=== PATIENT | male | born 1950 | race Caucasian/White ===

== ENCOUNTER → 2016-06-16 | Outpatient (CLI) | payer OTHER ==
[~2016-06-16] MED LIST: ASPCH81 PO; ESCI1TAB10 PO; HYG/25 PO; LEVO88TA3 PO; OMEP20CA9 PO; POTA10CA28 PO; POTA20TA13 PO; PRAM1.5T8 PO; PRAV20TA PO; [UNRECOGNIZED DRUG - CODE] PO
== END | disposition home or self-care (01) ==
LOC: C.LABPVFM 11:12
PROVIDERS: ATTEND Nurse Practitioner
DX: E87.6 Hypokalemia (principal)

== ENCOUNTER → 2016-12-02 | Outpatient (CLI) | payer OTHER ==
[2016-12-02 13:27] LABS: CALCIUM 8.7 mg/dl (8.5-10.1)
[2016-12-02 13:35] LABS: ALKALINE PHOSPHATASE 81 U/L (45-117); ALT/SGPT 39 U/L (12-78); BLOOD UREA NITROGEN 15 mg/dl (7-18); BUN/CREATININE RATIO 11.5 (10-20); CARBON DIOXIDE 26 mmol/L (21-32); CHLORIDE 104 mmol/L (98-107); CHOLESTEROL 164 mg/dl (0-200); GLUCOSE 95 mg/dl (70-99); POTASSIUM 3.3 mmol/L (3.5-5.1); SODIUM 140 mmol/L (136-145); TRIGLYCERIDES 191 mg/dl (0-150); VERY LOW DENSITY LIPOPROT CALC 38 mg/dl
[2016-12-02 13:45] LABS: ALB/GLOB RATIO 1.2 (0.9-2); AST/SGOT 28 U/L (15-37); CHOLESTEROL/HDL RATIO 4.6; HDL CHOLESTEROL 36 mg/dl; LDL CHOLESTEROL CALCULATED 90 mg/dl
== END | disposition home or self-care (01) ==
LOC: C.LABPVFM 07:21
PROVIDERS: ATTEND Nurse Practitioner
DX: E78.5 Hyperlipidemia, unspecified (principal); I10 Essential (primary) hypertension; E03.9 Hypothyroidism, unspecified

== ENCOUNTER → 2016-12-26 | Outpatient (CLI) | payer OTHER ==
[~2016-12-26] MED LIST changes: -POTA20TA13 PO; -PRAM1.5T8 PO
== END ==
LOC: C.LABPVFM 08:03
PROVIDERS: ATTEND Nurse Practitioner
DX: E87.6 Hypokalemia (principal)

== ENCOUNTER → 2017-01-11 | Day surgery (SDC) | payer OTHER ==
[2016-12-25 12:43] VITALS: BMI 26.0
[~2017-01-11] VITALS: Ht 172.7 cm; Wt 79.5 kg
[~2017-01-11] MED LIST changes: +LIDOCAINE HCL 2% 2 ML VIAL (20MG/ML) ONE; +PROPOFOL IV EMULSION 10 MG/ML 20 ML VIAL IV ONE; +SODIUM CHLORIDE 0.9% 500ML 500 ML IV ONE
[2017-01-11 10:31] VITALS: Ht 172.7 cm; Wt 79.5 kg
--- NOTE | 2017-01-11 11:00 | Endo History and Physical ---
History & Physical Date of Service: Jan 11, 2017. Chief Complaint: Family history of colon cancer Referring Physician: Mumtaz GARZA History of Present Illness 66 yo CM who presents for colonoscopy secondary to family history of colon cancer (Mother). Past Surgical History Hx Cardiac Surgery: No Hx Internal Defibrillator: No Hx Pacemaker: No Hx Abdominal Surgery: Yes (HARLEY) Hx of Implantable Prosthesis: No Hx Post-Op Nausea and Vomiting: No Hx Cancer Surgery: No Hx Thoracic Surgery: No Hx Orthopedic: Yes (RT/LEFT EBLOW FX REPAIR) Hx Urinary Tract Surgery: No Family History Colon CA Social History Smoking Status: Current Some Day Smoker Hx Substance Use: No Hx Alcohol Use: Yes (RARELY) Allergies Coded Allergies: No Known Allergies (Unverified , 01/11/17) Current Medications Reported Home Medications Medications Dose Route/Sig Max Daily Dose Days Date Category Pravachol (Pravastatin Sodium) 20 Mg Tab 20 Mg PO HS 12/25/16 Reported Pramipexole Dihydrochlori (Pramipexole Dihydrochloride) 2.25 Mg Tab 1 Tab PO DAILY AT 1100 12/25/16 Reported Micro-K Ext Rel (Potassium Chloride) 10 Meq Capcr 10 Meq PO QAM 12/25/16 Reported Prilosec (Omeprazole) 20 Mg Cap 20 Mg PO QAM 12/25/16 Reported Lexapro (Escitalopram Oxalate) 20 Mg Tab 20 Mg PO QAM 12/25/16 Reported Levothyroxine Sodium 88 Mcg Tab 1 Tab PO QAM 90 05/17/16 Reported Hygroton (Chlorthalidone) 25 Mg Tab 25 Mg PO QAM 05/17/16 Reported Aspirin Tab-Chewable * (Aspirin) 81 Mg Chew 81 Mg PO HS 12/07/10 Reported Vital Signs Weight (Kilograms): 79.55 Height (Feet): 5 Height (Inches): 8 Date Time Temp Pulse Resp B/P (MAP) Pulse Ox O2 Delivery O2 Flow Rate FiO2 01/11/17 10:40 36.1 63 20 150/89 (109) 98 Room Air Physical Exam General Appearance: WD/WN, no apparent distress Respiratory/Chest: Auscultation: breath sounds normal Cardiovascular: Heart Auscultation: RRR Abdomen: Bowel Sounds: normal Inspection & Palpation: soft, non-distended, no tenderness, guarding & rebound Assessment and Plan Assessment: 66 yo CM who presents for colonoscopy secondary to family history of colon cancer (Mother). Plan: Proceed with colonoscopy.
--- NOTE | 2017-01-11 11:42 | Discharge Instructions ---
Endoscopy Patient Instructions Date / Procedure(s) Performed Jan 11, 2017. Colonoscopy Allergy Information Coded Allergies: No Known Allergies (Unverified , 01/11/17) Discharge Date / Findings Jan 11, 2017. Rectal polyp with endoclip placement x1 Diverticulosis Internal hemorrhoids Medication Instructions OK to resume all medications today as prescribed Reported Home Medications Medications Dose Route/Sig Max Daily Dose Days Date Category Pravachol (Pravastatin Sodium) 20 Mg Tab 20 Mg PO HS 12/25/16 Reported Pramipexole Dihydrochlori (Pramipexole Dihydrochloride) 2.25 Mg Tab 1 Tab PO DAILY AT 1100 12/25/16 Reported Micro-K Ext Rel (Potassium Chloride) 10 Meq Capcr 10 Meq PO QAM 12/25/16 Reported Prilosec (Omeprazole) 20 Mg Cap 20 Mg PO QAM 12/25/16 Reported Lexapro (Escitalopram Oxalate) 20 Mg Tab 20 Mg PO QAM 12/25/16 Reported Levothyroxine Sodium 88 Mcg Tab 1 Tab PO QAM 90 05/17/16 Reported Hygroton (Chlorthalidone) 25 Mg Tab 25 Mg PO QAM 05/17/16 Reported Aspirin Tab-Chewable * (Aspirin) 81 Mg Chew 81 Mg PO HS 12/07/10 Reported Provider Instructions Activity Restrictions - No exercising or heavy lifting for 24 hours. - Do not drink alcohol the day of the procedure. - Do not drive a car or operate machinery until the day after the procedure. - Do not make any important decisions or sign important papers in 24 hours after the procedure. Following Day: - Return to full activity which may include returning to work/school. Diet Start your diet with liquids and light foods (jello, soup, juice, toast). Then eat your usual diet if not nauseated. Treatment For Common After Affects For mild abdominal pain, bloating, or excessive gas: - Rest - Eat lightly - Lie on right side Follow-Up Information Follow-up with Mumtaz GARZA as scheduled Anesthesia Information What You Should Know You have had a procedure that required some medicine to reduce anxiety and discomfort. This treatment is called moderate sedation. After receiving the treatment, you may be sleepy, but you will be able to breathe on your own. The effects of the treatment may last for several hours. Follow these instructions along with Activity/Diet recommendations noted above: * Do NOT do anything where dizziness or clumsiness would be dangerous. * Rest quietly at home today, then you can be up and about tomorrow. * Have a responsible person stay with you the rest of today. * You may have had an I.V. today. If so, you may take the dressing off later today. Recommendations Call your doctor if: * Trouble breathing * Continuous vomiting for more than 24 hours * Temperature above 101 degrees * Severe abdominal pain or bloating * Pain not relieved by pain medicine ordered * There is increased drainage or redness from any incision * A large amount of rectal bleeding greater than 2-3 tablespoons. (If you had a polyp/s removed or have hemorrhoids, a small amount of blood - from the rectum is to be expected.) * You have any unanswered questions or concerns. IN THE EVENT OF A SERIOUS EMERGENCY, GO TO THE NEAREST EMERGENCY ROOM Your discharge instructions were prepared by provider Reynaldo Howard. Patient Instructions Signature Page Ramses Lisa Patient (or Guardian) Signature/Date: I have read and understand the instructions given to me by my caregivers. Caregiver/RN/Doctor Signature/Date: The above-named patient and/or guardian has received patient instructions on this date. + Original Patient Signature Page (only) stays with chart. Please make copy for patient.
--- NOTE | 2017-01-11 11:51 | GI REPORT ---
Procedure Date: 01/11/2017 11:05 AM Procedure: Colonoscopy Indications: Family history of colon cancer in a first-degree relative Medicines: Monitored Anesthesia Care Complications: No immediate complications. Estimated Blood Loss: Estimated blood loss: none. Procedure: Pre-Anesthesia Assessment: - Prior to the procedure, a History and Physical was performed, and patient medications and allergies were reviewed. The patient's tolerance of previous anesthesia was also reviewed. The risks and benefits of the procedure and the sedation options and risks were discussed with the patient. All questions were answered, and informed consent was obtained. Prior Anticoagulants: The patient has taken aspirin, last dose was 2 days prior to procedure. ASA Grade Assessment: II - A patient with mild systemic disease. After reviewing the risks and benefits, the patient was deemed in satisfactory condition to undergo the procedure. After I obtained informed consent, the scope was passed under direct vision. Throughout the procedure, the patient's blood pressure, pulse, and oxygen saturations were monitored continuously. The scope was introduced through the anus and advanced to the terminal ileum. The colonoscopy was performed without difficulty. The patient tolerated the procedure well. The quality of the bowel preparation was good. The terminal ileum, ileocecal valve, appendiceal orifice, and rectum were photographed. Findings: A 4 mm polyp was found in the rectum. The polyp was sessile. The polyp was removed with a cold snare. Resection and retrieval were complete. To prevent bleeding after the polypectomy, one hemostatic clip was successfully placed (MR conditional). There was no bleeding at the end of the procedure. Multiple small-mouthed diverticula were found in the sigmoid colon. Non-bleeding internal hemorrhoids were found during retroflexion. The hemorrhoids were small. Impression: - One 4 mm polyp in the rectum, removed with a cold snare. Resected and retrieved. Clip (MR conditional) was placed. - Diverticulosis in the sigmoid colon. - Non-bleeding internal hemorrhoids. Recommendation: - Resume previous diet. - Continue present medications. - Repeat colonoscopy for surveillance based on pathology results. - Return to primary care physician as previously scheduled. Reynaldo Howard DO 01/11/2017 11:51:05 AM This report has been signed electronically. Note Initiated On: 01/11/2017 11:05 AM I attest to the content of the Intraoperative Record and orders documented therein, exceptions below
--- NOTE | 2017-01-11 11:58 | Anesthesiology Progress Note ---
Anesthesia Post Op Note Date & Time Jan 11, 2017 at 11:58 Vital Signs Pain Intensity: 0 Vital Signs Past 12 Hours Date Time Temp Pulse Resp B/P (MAP) Pulse Ox O2 Delivery O2 Flow Rate FiO2 01/11/17 11:56 62 20 120/83 (95) 97 Room Air 01/11/17 11:41 65 20 102/62 (75) 96 Room Air 01/11/17 10:40 36.1 63 20 150/89 (109) 98 Room Air Notes Mental Status: alert / awake / arousable, participated in evaluation Pt Amnestic to Procedure: Yes Nausea / Vomiting: adequately controlled Pain: adequately controlled Airway Patency, RR, SpO2: stable & adequate BP & HR: stable & adequate Hydration State: stable & adequate Anesthetic Complications: no major complications apparent
[2017-01-11 12:10] VITALS: BP 120/85; PULSE 64; O2SAT 97
== END | disposition home or self-care (01) ==
LOC: C.GI 10:10
PROVIDERS: ATTEND Internal Medicine
DX: Z12.11 Encounter for screening for malignant neoplasm of colon (principal); Z83.71 Family history of colonic polyps; Z80.0 Family history of malignant neoplasm of digestive organs; K62.1 Rectal polyp; K57.30 Diverticulosis of large intestine without perforation or abscess without bleeding; K64.8 Other hemorrhoids; Z90.49 Acquired absence of other specified parts of digestive tract; F17.200 Nicotine dependence, unspecified, uncomplicated; I10 Essential (primary) hypertension; E78.5 Hyperlipidemia, unspecified; I49.3 Ventricular premature depolarization; Z79.82 Long term (current) use of aspirin; E03.9 Hypothyroidism, unspecified; Z87.442 Personal history of urinary calculi; F41.9 Anxiety disorder, unspecified; F17.220 Nicotine dependence, chewing tobacco, uncomplicated

== ENCOUNTER → 2017-03-05 | Outpatient (CLI) | payer OTHER ==
[~2017-03-05] MED LIST changes: -LIDOCAINE HCL 2% 2 ML VIAL (20MG/ML) ONE; -PROPOFOL IV EMULSION 10 MG/ML 20 ML VIAL IV ONE; -SODIUM CHLORIDE 0.9% 500ML 500 ML IV ONE
[2017-03-05 13:00] LABS: BASO ABS # 0.07 K/uL (0-0.2); COMPLETE YES; EOS % 3.1 %; HEMATOCRIT 44.5 % (42-52); IG% 0.6 %; LYMPH % 25.5 %; LYMPH ABS # 1.78 K/uL (1.2-3.4); MEAN CELL VOLUME 91.8 fL (80-100); MEAN CORPUSCULAR HGB CONC 34.8 g/dl (32-36); MEAN PLATELET VOLUME 10.9 fL (7.4-10.4); MONO % 6.3 %; NEUT % 63.5 %; PLATELET COUNT 266 K/uL (130-400); RED BLOOD COUNT 4.85 M/uL (4.7-6.1); WHITE BLOOD COUNT 6.99 K/uL (4.8-10.8)
[2017-03-05 13:55] LABS: FERRITIN 240.1 ng/ml (8.0-388.0)
== END | disposition home or self-care (01) ==
LOC: C.LABPVFM 08:50
PROVIDERS: ATTEND Psychiatry & Neurology Neurology
DX: G25.81 Restless legs syndrome (principal); M79.1 Myalgia; M60.9 Myositis, unspecified

== ENCOUNTER → 2017-03-31 | Outpatient (CLI) | payer OTHER ==
[2017-03-31 13:09] LABS: POTASSIUM 3.2 mmol/L (3.5-5.1)
== END | disposition home or self-care (01) ==
LOC: C.LABPVFM 09:46
PROVIDERS: ATTEND Family Medicine
DX: R25.2 Cramp and spasm (principal); E87.6 Hypokalemia

== ENCOUNTER → 2017-04-22 | Outpatient (CLI) | payer OTHER | END | disposition home or self-care (01) | LOC: C.LABPVFM 07:49 | PROVIDERS: ATTEND Family Medicine | DX: E87.6 Hypokalemia (principal) ==

== ENCOUNTER → 2017-05-04 | Outpatient (CLI) | payer OTHER ==
--- NOTE | 2017-05-04 12:31 | DIAGNOSTIC IMAGING REPORT ---
LUMBAR SPINE MRI HISTORY: M54.16 Lumbar radiculopathy M62.81 Muscle weakness of lower extremities TECHNIQUE: Multiplanar multisequence MRI of the lumbar spine was performed without the use of contrast. COMPARISON: None. FINDINGS: For the purpose of the report the L5-S1 disc space will be located on axial image 23 of 25. No fracture or subluxation. The conus terminates at L1. Mild disc space narrowing and disc desiccation at L5-S1. Mild facet degenerative changes seen at L4-L5 and L5-S1. The visualized retroperitoneal soft tissues are unremarkable. L1-L2: No significant central canal or neural foraminal narrowing. L2-L3: No significant central canal or neural foraminal narrowing. Tiny broad-based posterior disc bulge. L3-L4: No significant central canal or neural foraminal narrowing. L4-L5: Small broad-based posterior disc bulge without significant central canal narrowing. There is a right foraminal small focal disc protrusion resulting in mild right neural foraminal narrowing. This is best seen on sagittal image 4 of 13. This abuts the exiting right L4 nerve root. L5-S1: Small broad-based posterior disc bulge with a small left paracentral disc extrusion. This measures 5 mm and abuts and compresses the transiting left S1 nerve root. This is best seen on axial image 24 of 25. No significant neural foraminal narrowing. IMPRESSION: 1. Small left paracentral disc extrusion which abuts and compresses the transiting left S1 nerve root. 2. Small right foraminal focal disc protrusion at L4-L5 which abuts but does not displace the exiting right L4 nerve root. This also results in mild right-sided neural foraminal narrowing at L4-L5. Electronically signed by: Timoteo Jo M.D. 05/04/2017 12:30 PM Dictated Date/Time: 05/04/2017 12:22 PM
== END | disposition home or self-care (01) ==
LOC: C.MRI 09:47
PROVIDERS: ATTEND Nurse Practitioner
DX: M62.81 Muscle weakness (generalized) (principal); R26.1 Paralytic gait; M51.16 Intervertebral disc disorders with radiculopathy, lumbar region; M51.27 Other intervertebral disc displacement, lumbosacral region

== ENCOUNTER → 2017-05-27 | Outpatient (CLI) | payer OTHER ==
[2017-05-27 13:54] LABS: ALT/SGPT 54 U/L (12-78); AST/SGOT 25 U/L (15-37); BLOOD UREA NITROGEN 17 mg/dl (7-18); BUN/CREATININE RATIO 14.5 (10-20); CALCIUM 9.4 mg/dl (8.5-10.1); CARBON DIOXIDE 25 mmol/L (21-32); CHLORIDE 102 mmol/L (98-107); CHOLESTEROL 190 mg/dl (0-200); GLUCOSE 101 mg/dl (70-99); POTASSIUM 3.8 mmol/L (3.5-5.1); SODIUM 136 mmol/L (136-145)
[2017-05-27 14:05] LABS: ALB/GLOB RATIO 1.1 (0.9-2); ALKALINE PHOSPHATASE 82 U/L (45-117); CHOLESTEROL/HDL RATIO 4.8; HDL CHOLESTEROL 40 mg/dl; LDL CHOLESTEROL CALCULATED 107 mg/dl; TRIGLYCERIDES 216 mg/dl (0-150); VERY LOW DENSITY LIPOPROT CALC 43 mg/dl
== END | disposition home or self-care (01) ==
LOC: C.LABPVFM 07:39
PROVIDERS: ATTEND Nurse Practitioner
DX: I10 Essential (primary) hypertension (principal); E87.6 Hypokalemia; E03.9 Hypothyroidism, unspecified

== ENCOUNTER → 2017-09-28 | Outpatient (CLI) | payer OTHER ==
[~2017-09-28] MED LIST changes: +ASPCH81X PO; +DICL-201 PO; +POTA10TA PO; +PRAM1TAB10 PO
== END | disposition home or self-care (01) ==
LOC: C.LABBC 10:55
PROVIDERS: ATTEND Orthopaedic Surgery Orthopaedic Surgery of the Spine
DX: M25.569 Pain in unspecified knee (principal); M25.469 Effusion, unspecified knee

== ENCOUNTER → 2017-10-04 | Outpatient (CLI) | payer OTHER ==
--- NOTE | 2017-10-04 08:13 | DIAGNOSTIC IMAGING REPORT ---
MRI OF THE RIGHT KNEE CLINICAL HISTORY: Right knee pain. COMPARISON STUDY: Radiographs of the right knee dated 09/21/2017. TECHNIQUE: MRI of the right knee was performed utilizing proton density, T1, and T2-weighted sequences in the axial, sagittal, coronal planes. IV contrast was not administered for this examination. The examination is significantly degraded by motion artifact. FINDINGS: Menisci: There is a large bucket-handle type tear involving the anterior horn and body of the medial meniscus. The fragment is flipped into the meniscal gutter, best seen on coronal image #21. The lateral meniscus appears intact. Ligaments: The anterior and posterior cruciate ligaments are intact. There is mild irregularity of the medial collateral ligament. This may be related to surrounding edema. Grade 1 injury is not excluded. The lateral collateral ligament complex is intact. Extensor mechanism: The extensor mechanism is intact. Hoffa's fat pad is normal in appearance. Articular cartilage and bone: There is advanced degenerative change with extensive full-thickness cartilage loss along the weightbearing surface in the medial compartment. There is significant associated subchondral marrow edema The articular cartilage appears intact in the lateral and patellofemoral compartments. There is no MRI evidence of fracture. Joint effusion: There is a moderate joint effusion. Soft tissues: The musculature surrounding the knee joint is normal in bulk. There is mild intramuscular edema within the body of the popliteus muscle. The popliteus tendon is intact. Superficial and deep soft tissue edema is present around the knee. Fluid is noted tracking along the gastrocnemius muscles. IMPRESSION: 1. Motion compromised examination. 2. There is a large bucket-handle type tear involving the anterior horn and body of the medial meniscus. The fragment is flipped into the meniscal gutter. 3. Question grade 1 injury of the medial collateral ligament. 4. The lateral meniscus, the lateral collateral ligament complex, and the cruciate ligaments are normal in appearance. 5. Advanced arthritic change with full thickness cartilage loss and significant marrow edema is seen in the medial compartment. 6. Superficial and deep soft tissue edema and joint effusion. Electronically signed by: Jian Robertson M.D. 10/04/2017 8:12 AM Dictated Date/Time: 10/04/2017 7:59 AM
== END | disposition home or self-care (01) ==
LOC: C.MRIBC 06:45
PROVIDERS: ATTEND Orthopaedic Surgery Orthopaedic Surgery of the Spine
DX: M25.561 Pain in right knee (principal); S83.206A Unspecified tear of unspecified meniscus, current injury, right knee, initial encounter; X58.XXXA Exposure to other specified factors, initial encounter

== ENCOUNTER → 2017-10-06 | Outpatient (CLI) | payer OTHER ==
[2017-10-06 12:44] LABS: POTASSIUM 3.4 mmol/L (3.5-5.1)
== END | disposition home or self-care (01) ==
LOC: C.CPL 10:56
PROVIDERS: ATTEND Orthopaedic Surgery
DX: Z01.818 Encounter for other preprocedural examination (principal); S83.241A Other tear of medial meniscus, current injury, right knee, initial encounter; X58.XXXA Exposure to other specified factors, initial encounter

== ENCOUNTER → 2017-10-19 | Day surgery (SDC) | payer OTHER ==
[2017-10-08 11:34] VITALS: Ht 172.7 cm; Wt 79.5 kg
[~2017-10-19] VITALS: Ht 172.7 cm; Wt 79.5 kg
[~2017-10-19] MED LIST changes: -ASPCH81 PO; +ATROPINE SULFATE 0.1 MG/ML 5ML SYR IV PRN; +BUPIVACAINE 0.5 % 5 MG/1 ML PF 10ML VIAL ONE; +CEFAZOLIN 1000MG IV PUSH 7.5 ML IV SCH; +DEXAMETHASONE SOD INJ 4 MG/ML VIAL ONE; -ESCI1TAB10 PO; +EpHEDrine SULFATE INJ 50 MG/ML AMP IV PRN; +EpINEphrine INJ 1MG/ML AMP 1 MG/ML AMP ONE; +FENTANYL CITRATE INJ 50 MCG/1 ML 2 ML VIAL ONE; +HydrALAZINE HCL 20 MG/ML VIAL ONE; +KETOROLAC TROMETHAMINE 30 MG/ML VIAL ONE; +LACTATED RINGER'S 1000ML 1,000 ML IV SCH; +LIDOCAINE HCL 2% 2 ML VIAL (20MG/ML) ONE; +MIDAZOLAM HCL 1 MG/ML 2ML VIAL ONE; +ONDANSETRON INJ 2 MG/ML 2 ML VIAL IV PRN; +ONDANSETRON INJ 2 MG/ML 2 ML VIAL ONE; +OXYCODONE/ACETAMINOPHEN 5-325 TAB PO PRN; +PROPOFOL IV EMULSION 10 MG/ML 20 ML VIAL ONE; +ROPIVACAINE 0.5% 5 MG/ML 30 ML VIAL ONE; +SODIUM CHLORIDE 0.9% 1000ML 1,000 ML IV SCH; +TRAM-10 PO; -[UNRECOGNIZED DRUG - CODE] PO
--- NOTE | 2017-10-19 06:45 | History & Physical Bridge - SC ---
H&P Re-Evaluation Bridge Note: I have examined the patient, reviewed the History & Physical and in the interval since the performance of the History & Physical I have noted the following changes of clinical significance: No changes noted
--- NOTE | 2017-10-19 07:26 | [facility] Post Operative Brief Note ---
Immediate Operative Summary Operative Date October 19, 2017. Pre-Operative Diagnosis Right Knee Medial Meniscus Tear Post-Operative Diagnosis same as preop, DJD GRADE IV MFC, LOOSE BODY Procedure(s) Performed Right Knee Arthroscopy, Partial Medial Meniscectomy, CHONDROPLASTY MFC, REMOVAL LOOSE BODY Surgeon Dr. Lopez Gristmill Operator Surgeon(s) CINDI Aguilar Estimated Blood Loss 0 Findings Consistent with Post-Op Diagnosis Specimens none Drains None Anesthesia Type General Disposition Disposition: Recovery Room / PACU
--- NOTE | 2017-10-19 07:35 | Discharge Instructions-SurgCtr ---
Discharge Instructions Date of Service October 19, 2017. Visit Reason for Visit: Right Knee Medial Meniscus Tear Discharge Discharge Diagnosis / Problem: SAME ABOVE Discharge Goals Goal(s): Decrease discomfort, Improve function Activity Recommendations Activity Limitations: as noted below Lifting Limitations: gradually increase as tolerated Exercise/Sports Limitations: until after follow-up appointment Shower/Bathe: tomorrow Anesthesia . Post Anesthesia Instructions: If you have had General Anesthesia or IV Sedation: * Do not drive today. * Resume driving when surgeon permits. * Do not make important decisions or sign legal documents today. * Call surgeon for: 1. Temperature elevations greater than 101 degrees F. 2. Uncontrollable pain. 3. Excessive bleeding. 4. Persistent nausea and vomiting. 5. Medication intolerance (nausea, vomiting or rash). * For nausea and vomiting use only clear liquids such as: tea, soda, bouillon until nausea subsides, then gradually increase diet as tolerated. * If you have any concerns or questions, call your surgeon's office. If physician is unavailable and it is an emergency, call 911 or go to the nearest emergency room. . Instructions / Follow-Up Instructions / Follow-Up MEDICATIONS: * Resume previous medications unless instructed otherwise by your surgeon. * Always take pain medication on a full stomach or with food to avoid upset stomach. * Do not drink alcohol or drive while taking narcotics. * Ibuprofen or Tylenol may be taken if narcotic not needed. SPECIAL CARE INSTRUCTIONS: __ None _X_ Keep extremity elevated and iced x 48 hours; apply ice 20-30 minutes 8-10 times/day. May remove at night. __ Crutches __ May discard when able __ Brace/Post-op shoe __ 24 hrs/day __ Remove at night _X_ Dressing __ Maintain until seen in office, may shower with plastic over site _X_ Remove dressings in 24-48 hours and then may shower _X_ Cover incisions with band-aids after showering __ Do not remove steri-strips Call physician if chills or temperature rises above 102 degrees or pain unrelieved by prescribed pain medications. Office [phone] Diet Recommendations Home Diet: no limitations Procedures Procedures Performed: Right Knee Arthroscopy, Partial Medial Meniscectomy, CHONDROPLASTY MFC, REMOVAL LOOSE BODY Pending Studies Studies pending at discharge: no Medical Emergencies . Who to Call and When: Medical Emergencies: If at any time you feel your situation is an emergency, please call 911 immediately. . Non-Emergent Contact Non-Emergency issues call your: Primary Care Provider . . "Provider Documentation" section prepared by Reyes Short. .
[2017-10-19] MEDS: FENTANYL CITRATE INJ 50 MCG/1 ML 2 ML VIAL IV PRN ×3 (08:00→08:20)
--- NOTE | 2017-10-19 08:44 | Anesthesia Progress Nt - [facility] ---
Anesthesia Post Op Note Date & Time October 19, 2017 at 08:44 Vital Signs Pain Intensity: 4 Vital Signs Past 12 Hours Date Time Temp Pulse Resp B/P (MAP) Pulse Ox O2 Delivery O2 Flow Rate FiO2 10/19/17 08:35 120/92 10/19/17 08:33 79 22 10/19/17 08:33 79 22 93 10/19/17 08:32 36.8 78 20 120/92 93 Room Air 10/19/17 08:30 126/103 10/19/17 08:28 86 19 93 10/19/17 08:28 85 19 10/19/17 08:25 136/96 10/19/17 08:23 74 15 97 10/19/17 08:23 72 15 10/19/17 08:20 127/82 10/19/17 08:18 74 15 10/19/17 08:18 72 15 96 10/19/17 08:15 157/100 10/19/17 08:13 73 15 156/110 96 10/19/17 08:13 73 15 10/19/17 08:10 140/117 10/19/17 08:10 36.8 77 18 156/110 97 Diffusion Mask 6 10/19/17 08:08 69 23 96 10/19/17 08:08 71 23 10/19/17 08:07 132/104 10/19/17 08:05 123/107 10/19/17 08:03 82 20 10/19/17 08:03 82 20 96 10/19/17 08:00 159/94 10/19/17 07:58 76 20 10/19/17 07:58 75 20 98 10/19/17 07:55 145/93 10/19/17 07:53 79 20 96 10/19/17 07:53 79 20 10/19/17 07:52 151/95 10/19/17 07:50 133/108 10/19/17 07:49 74 17 10/19/17 07:49 73 17 96 10/19/17 07:45 141/94 10/19/17 07:44 74 18 96 10/19/17 07:44 75 18 10/19/17 07:40 141/97 10/19/17 07:39 76 17 10/19/17 07:39 75 17 96 10/19/17 07:35 153/98 10/19/17 07:35 131/89 10/19/17 07:34 36.2 77 12 153/98 94 Diffusion Mask 10/19/17 06:26 36.7 76 16 173/88 (116) 96 Room Air Notes Mental Status: alert / awake / arousable, participated in evaluation Pt Amnestic to Procedure: Yes Nausea / Vomiting: adequately controlled Pain: adequately controlled Airway Patency, RR, SpO2: stable & adequate BP & HR: stable & adequate Hydration State: stable & adequate Anesthetic Complications: no major complications apparent
[2017-10-19 08:50] VITALS: TEMP 36.8
[2017-10-19 09:22] VITALS: BP 135/84; PULSE 79; O2SAT 95
--- NOTE | 2017-10-19 10:51 | OPERATIVE REPORT ---
DATE OF OPERATION: 10/19/2017 PREOPERATIVE DIAGNOSIS: Buckle handle tear medial meniscus with degenerative joint disease, right knee. POSTOPERATIVE DIAGNOSES: 1. Medial meniscus tear. 2. Grade 4 articular damage to the medial femoral condyle and tibial plateau. 3. Loose body. 4. Diffuse synovitis and effusion, right knee. SURGERIES: 1. Right knee arthroscopy. 2. Partial medial meniscectomy. 3. Chondroplasty of medial femoral condyle, tibial plateau. 4. Removal of loose body. 5. Synovectomy. SURGEON: Jt Lopez MD DENTAL LAB TECHNICIAN: Reyes Short PA-C ANESTHESIOLOGIST: Reyes Espinosa MD ANESTHESIA: LMA. DRAINS: None. COMPLICATIONS: None. CONDITION: The patient tolerated the procedure well and returned to recovery room in apparent satisfactory condition. 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 He has excruciating pain. He injured himself when he slipped and seen by my partner Dr. Swenson, referred to me with a bucket-handle tear of his knee and DJD. When I looked at his MRI, radiologist has written a bucket-handle tear. I knew there was arthritis in his knee. We had a long discussion that we can handle meniscus pathology but if he has arthritis, then arthroscopically will not improve that much. He was adamant about this pain, discomfort, and locking of his knee. We elected to go ahead and proceed with knee arthroscopy, realizing that the arthritic part of his knee would not be improved. Procedure, expected outcomes, side effects, risks were all explained in detail. PROCEDURE: The patient was taken to the OR at which time he was placed supine on the operating table and put to sleep by anesthesia department. Examination of right knee was performed. Ligamentous bacon was stable, had a mild effusion, pretty good range of motion. We went ahead and prepped and draped in usual sterile fashion. Began arthroscopic examination of anteromedial and anterolateral portals. Immediately we found grade 4 lesion of the femoral condyle, tibial plateau. The femoral condyle was probably size of a quarter to a little bit bigger than at tibial plateau which was about the size of a nickel. We did a chondroplasty of the meniscus. It was not a buckle handle tear. There was a tear in the posterior horn which returned back to a stable rim. Lot of synovitis in the intercondylar notch was shaved out. At the lateral compartment, we found loose body in the posterior part of about the size of a dime. We removed that. We found lot of scar tissue, synovitis throughout both medial and lateral gutters of the knee and the patellofemoral joint. This was all cleaned out and shaved with synovectomy. The patellofemoral joint itself looked to be in good shape. Knee then was copiously irrigated. All cannulas removed. Portals were closed with 4-0 nylon sutures. 30 mL of ropivacaine, 10 mg of Toradol, and 1 mL of epinephrine was placed in knee joint. Placed sterile dressing of Xeroform, 4 x 4, ABD, Sof-Rol, and Royer bandage and returned back to recovery room in apparent satisfactory condition. SURGICAL FINDINGS: Included: 1. Grade IV articular damage to the medial femoral condyle and medial tibial plateau. 2. Posterior horn medial meniscus tear. 3. Loose body. 4. Diffuse synovitis. I attest to the content of the Intraoperative Record and any orders documented therein. Any exception s are noted below.
== END | disposition home or self-care (01) ==
LOC: X.SURG 06:14
PROVIDERS: ATTEND Orthopaedic Surgery
DX: S83.211A Bucket-handle tear of medial meniscus, current injury, right knee, initial encounter (principal); W01.0XXA Fall on same level from slipping, tripping and stumbling without subsequent striking against object, initial encounter; M23.41 Loose body in knee, right knee; J44.9 Chronic obstructive pulmonary disease, unspecified; I10 Essential (primary) hypertension; K21.9 Gastro-esophageal reflux disease without esophagitis; E78.5 Hyperlipidemia, unspecified; M54.16 Radiculopathy, lumbar region; G25.81 Restless legs syndrome; Z90.49 Acquired absence of other specified parts of digestive tract; Z79.82 Long term (current) use of aspirin

== ENCOUNTER 2018-01-05 04:46 | Inpatient (IN) | payer OTHER ==
[2017-12-29 14:52] VITALS: BMI 27.0
--- NOTE | 2017-12-29 16:10 | PAT Medication Instructions ---
Service Date Dec 29, 2017. Current Home Medication List Aspirin (Aspirin Chewable), 81 MG PO HS Celecoxib (Celebrex), 1 CAP PO QAM Chlorthalidone (Hygroton), 25 MG PO QAM Coenzyme Q10 (Ubidecarenone) (Co Q-10), Unknown Dose PO HS Escitalopram Oxalate (Lexapro), 20 MG PO QAM Gabapentin (Neurontin), 2 TAB PO QAM Levothyroxine Sodium (Levothyroxine Sodium), 1 TAB PO QAM Omeprazole (Prilosec), 20 MG PO QAM Potassium Chloride (Micro-K Ext Rel), 10 MEQ PO BID Pramipexole Dihydrochloride (Pramipexole Dihydrochlori), 2 TAB PO BID Pravastatin (Pravachol ), 20 MG PO HS Medication Instructions For Your Scheduled Surgery - Check with surgeon for instructions: Celecoxib (Celebrex), 1 CAP PO QAM - Hold the following medications starting 12/29/17: Coenzyme Q10 (Ubidecarenone) (Co Q-10), Unknown Dose PO HS - Hold the following medications the night before surgery and the morning of surgery: Pramipexole Dihydrochloride (Pramipexole Dihydrochlori), 2 TAB PO BID - Hold the following medications the morning of surgery: Chlorthalidone (Hygroton), 25 MG PO QAM Potassium Chloride (Micro-K Ext Rel), 10 MEQ PO BID - Take the following medications the morning of surgery with a sip of water: Omeprazole (Prilosec), 20 MG PO QAM Escitalopram Oxalate (Lexapro), 20 MG PO QAM Gabapentin (Neurontin), 2 TAB PO QAM Levothyroxine Sodium (Levothyroxine Sodium), 1 TAB PO QAM - Take the following medications as scheduled the night before surgery: Aspirin (Aspirin Chewable), 81 MG PO HS Pravastatin (Pravachol ), 20 MG PO HS Potassium Chloride (Micro-K Ext Rel), 10 MEQ PO BID If you have any questions please call us at [phone] or [phone] or [phone]
[2017-12-30 09:15] VITALS: BMI 29.0
--- NOTE | 2017-12-30 10:28 | DIAGNOSTIC IMAGING REPORT ---
CHEST 2 VIEWS ROUTINE HISTORY: Preop. COMPARISON: Chest 05/17/2016. FINDINGS: The lungs are clear. Cardiac silhouette is normal in size. No pleural effusions. No pneumothorax. Cholecystectomy. IMPRESSION: No acute process. Electronically signed by: Timoteo Jo M.D. 12/30/2017 10:26 AM Dictated Date/Time: 12/30/2017 10:16 AM
[2017-12-30 10:31] LABS: PTT PATIENT 27.8 SECONDS (21.0-31.0)
[2017-12-30 10:32] LABS: BASO % 0.9 %; BASO ABS # 0.06 K/uL (0-0.2); EOS ABS # 0.21 K/uL (0-0.5); HEMATOCRIT 40.3 % (42-52); HEMOGLOBIN 14.1 g/dL (14.0-18.0); IG# 0.07 K/uL (0.00-0.02); LYMPH % 24.5 %; LYMPH ABS # 1.72 K/uL (1.2-3.4); MEAN CORPUSCULAR HEMOGLOBIN 32.2 pg (25-34); MONO % 9.4 %; MONO ABS # 0.66 K/uL (0.11-0.59); NEUT % 61.2 %; PLATELET COUNT 274 K/uL (130-400); RED CELL DISTRIBUTION WIDTH CV 13.6 % (11.5-14.5); WHITE BLOOD COUNT 7.02 K/uL (4.8-10.8)
--- NOTE | 2018-01-01 10:50 | HISTORY & PHYSICAL EXAMINATION ---
DATE OF ADMISSION: 01/05/2018 CHIEF COMPLAINT: Right knee pain. HISTORY OF PRESENT ILLNESS: The patient is a 67-year-old gentleman who presents for surgical treatment of his right knee. He has about a 4-month history of a fairly acute onset of right knee pain and discomfort, it has been miserable form. He has been through extensive conservative treatment and then subsequently had a knee arthroscopy done by Dr. Jessica al on October 19. He did not get any relief at all from this, I think it has gotten worse. He has had to use crutches to get around. Pain is mostly all on the medial side of his knee. 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 He would like this fixed as soon as possible as he is having trouble getting around. PAST MEDICAL HISTORY: 1. Hypertension. 2. Elevated cholesterol. 3. Mild sleep apnea. 4. Anxiety/depression: 5. Hypothyroidism. 6. Arthritis. 7. Gastroesophageal reflux disease. 8. BPH. PAST SURGICAL HISTORY: Previous surgeries include: 1. Right knee arthroscopy on 10/19/2017. 2. Bilateral arm surgery in high school for fractures. 3. Cholecystectomy. ALLERGIES: None. CURRENT MEDICINES: 1. Aspirin 81 mg a day. 2. Celebrex 200 mg. 3. Chlorthalidone 25 mg. 4. Citalopram 20 mg. 5. Gabapentin 200 mg a day. 6. Levothyroxine 88 mcg a day. 7. Omeprazole 20 mg a day. 8. Potassium chloride 10 mEq a day. 9. Pravastatin 20 mg a day. 10. Pramipexole 1 mg 2 tablets twice a day. SOCIAL HISTORY: A 67-year-old gentleman. . 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 FAMILY HISTORY: Significant for heart disease. REVIEW OF SYSTEMS: Negative for diabetes, neurologic problem, vascular problem, and bleeding disorders. No chest pain or shortness of breath. No history of DVT or PE. PHYSICAL EXAMINATION: GENERAL: Physical examination reveals a healthy, pleasant middle-aged male. He looks to be in pretty good health. HEENT: Benign. NECK: Supple. No lymphadenopathy. LUNGS: Clear to auscultation. HEART: Has a regular rate and rhythm. ABDOMEN: Soft, nontender, nondistended. EXTREMITIES: Grossly neurovascularly intact except as follows: Examination of the right knee reveals patient walks with a markedly antalgic gait. He comes in using crutches. He has difficulty putting any weight on his knee. Slight varus alignment to his knee. Small to best moderate knee effusion. He is tender over the medial joint line. Range of motion is about 10-90, limited by pain and stiffness and swelling. His ACL clinically appears intact. X-RAYS: X-rays of the knee reviewed. It shows advanced medial compartment arthritis with significant progression and collapse of his medial joint space over the past 4 months. His lateral and patellofemoral compartments looked well preserved. I reviewed his arthroscopy pictures. His ACL looks to be intact. The lateral compartment and patellofemoral compartments look to be pretty well preserved. ASSESSMENT: A 67-year-old gentleman 2-1/2 months out from right knee arthroscopy, partial meniscectomy with advanced medial compartment degenerative changes and subsequent avascular necrosis, medial femoral condyle. This has progressed markedly over the past several months. He has failed all conservative treatment. PLAN: We talked about treatment. I do think he is a good candidate for partial knee replacement. We are going to proceed with partial knee replacement. If we get in there, it is too bad, we will do a full knee replacement. The risks and benefits of this procedure were explained to the patient and include but not limited to DVT, PE, , infection, neurological injury, vascular injury, bleeding problem, pain, limited range of motion, stiffness, failure to relieve symptoms, incomplete relief of symptoms, need for further surgery in future, fracture, leg length inequality, nerve palsy, etc. The patient understands and desires to proceed. Informed consent was obtained. We will likely put a little bit of vancomycin in the cement just due to his recent surgery and his slightly elevated sed rate and C-reactive protein. There are no clinical signs of active infection at this time. As far as discharge plans, he should be able to be discharged to home and do outpatient therapy.
[2018-01-05] VITALS (9 sets, daily range): BP systolic 124–162; BP diastolic 60–87; PULSE 56–77; TEMP 36.4–36.8; O2SAT 91–99; Ht 172.7 cm; Wt 86.4 kg
[~2018-01-05] VITALS: Ht 172.7 cm; Wt 86.4 kg
[~2018-01-05 04:46] MED LIST changes: -ATROPINE SULFATE 0.1 MG/ML 5ML SYR IV PRN; -BUPIVACAINE 0.5 % 5 MG/1 ML PF 10ML VIAL ONE; -CEFAZOLIN 1000MG IV PUSH 7.5 ML IV SCH; +CLB200 PO; +COEN75CA PO; -DEXAMETHASONE SOD INJ 4 MG/ML VIAL ONE; -DICL-201 PO; +ESCI1TAB6 PO; -EpHEDrine SULFATE INJ 50 MG/ML AMP IV PRN; -EpINEphrine INJ 1MG/ML AMP 1 MG/ML AMP ONE; -FENTANYL CITRATE INJ 50 MCG/1 ML 2 ML VIAL ONE; +GABA-112 PO; -HydrALAZINE HCL 20 MG/ML VIAL ONE; -KETOROLAC TROMETHAMINE 30 MG/ML VIAL ONE; -LACTATED RINGER'S 1000ML 1,000 ML IV SCH; -LIDOCAINE HCL 2% 2 ML VIAL (20MG/ML) ONE; -MIDAZOLAM HCL 1 MG/ML 2ML VIAL ONE; -ONDANSETRON INJ 2 MG/ML 2 ML VIAL IV PRN; -ONDANSETRON INJ 2 MG/ML 2 ML VIAL ONE; -OXYCODONE/ACETAMINOPHEN 5-325 TAB PO PRN; -POTA10TA PO; -PROPOFOL IV EMULSION 10 MG/ML 20 ML VIAL ONE; -ROPIVACAINE 0.5% 5 MG/ML 30 ML VIAL ONE; -SODIUM CHLORIDE 0.9% 1000ML 1,000 ML IV SCH; -TRAM-10 PO
[2018-01-05] MEDS ORDERED: METOCLOPRAMIDE HCL 10 MG TAB PO SCH (06:00)
[2018-01-05] MEDS ORDERED: CEFAZOLIN 2000MG IV PUSH 15 ML IV SCH (06:00)
[2018-01-05] MEDS ORDERED: FAMOTIDINE 20 MG TAB PO SCH (06:00)
[2018-01-05] MEDS ORDERED: LACTATED RINGER'S 1000ML 1,000 ML IV SCH (06:00)
[2018-01-05] MEDS ORDERED: TRANEXAMIC ACID INJ 1,000 MG x 1 Bag Intra-Op IV SCH ×2 (06:00)
[2018-01-05] MEDS ORDERED: LACTATED RINGER'S 1000ML 500 ML IV SCH (06:00)
[2018-01-05] MEDS ORDERED: SCOPOLAMINE 1.5 MG TDSY TD SCH (06:00)
[2018-01-05] MEDS ORDERED: BUPIVACAINE LIPOSOME 266 MG, BUPIVACAINE/EPINEPHRINE INJ 50 ML, SODIUM CHLORIDE 0.9% PF... INFIL SCH ×3 (06:00)
[2018-01-05] MEDS ORDERED: GABAPENTIN 300 MG CAP PO SCH (06:00)
[2018-01-05] MEDS ORDERED: ACETAMINOPHEN 500 MG TAB PO SCH (06:00)
[2018-01-05] MEDS ORDERED: LACTATED RINGER'S 1000ML IV SCH (06:00)
[2018-01-05] MEDS ORDERED: BUPIVACAINE 0.5 % 5 MG/1 ML PF 10ML VIAL ONE (06:37)
[2018-01-05] MEDS ORDERED: ROPIVACAINE 0.5% 5 MG/ML 30 ML VIAL ONE (06:37)
[2018-01-05] MEDS ORDERED: BACITRACIN 50000 UNIT VIAL ONE (07:05)
[2018-01-05] MEDS ORDERED: SODIUM CHLORIDE 0.9% PF 50 ML VIAL ONE (07:05)
[2018-01-05] MEDS ORDERED: BUPIVACAINE LIPOSOME 1/3% 266 MG/20 ML VIAL ONE (07:05)
[2018-01-05] MEDS ORDERED: EpINEphrine INJ 1MG/ML AMP 1 MG/ML AMP ONE (07:06)
[2018-01-05] MEDS ORDERED: BUPIVACAINE 0.25% 30 ML VIAL ONE (07:06)
[2018-01-05] MEDS ORDERED: MIDAZOLAM HCL 1 MG/ML 2ML VIAL ONE (07:10)
[2018-01-05] MEDS ORDERED: VANCOMYCIN HCL 1000MG/20ML VIAL ONE (07:32)
[2018-01-05] MEDS ORDERED: LIDOCAINE HCL 2% 2 ML VIAL (20MG/ML) ONE (08:28)
[2018-01-05] MEDS ORDERED: PROPOFOL IV EMULSION 10 MG/ML 20 ML VIAL ONE (08:28)
--- NOTE | 2018-01-05 09:10 | [facility] Post Operative Brief Note ---
Immediate Operative Summary Operative Date Jan 05, 2018. Pre-Operative Diagnosis right knee advanced medial compartment arthritis Post-Operative Diagnosis right knee advanced medial compartment arthritis Procedure(s) Performed Right knee unicompartmental replacement Surgeon Dr. Stock Motion And Time Study Teacher Surgeon(s) Filippo Rodriguez PA-C Estimated Blood Loss 20cc Findings Consistent with Post-Op Diagnosis Fluids (cc crystalloids) 1600 cc Specimens A. Right knee bone and tissue Drains None Anesthesia Type MAC Spinal Regional Complication(s) none Disposition Accompanied Pt To Recover: no Disposition: Recovery Room / PACU Overlapping Procedure I was present for: the critical portions of procedure. I was immediately available: during the entire case
[2018-01-05] MEDS ORDERED: TAMSULOSIN HCL 0.4 MG CAP PO PRN (09:15)
[2018-01-05] MEDS ORDERED: ALUMINUM/MAGNESIUM/SIMETH (MAALOX MAX) 30 ML UDC PO PRN (09:15)
[2018-01-05] MEDS ORDERED: CEFAZOLIN IV 2,000 MG in DEXTROSE 5% 50ML 50 ML IV SCH (09:15)
[2018-01-05] MEDS ORDERED: METOCLOPRAMIDE HCL INJ 5 MG/ML 2 ML VIAL IV PRN (09:15)
[2018-01-05] MEDS ORDERED: MoRPHine SULFATE 2 MG/ML CARP IV PRN (09:15)
[2018-01-05] MEDS ORDERED: ONDANSETRON INJ 2 MG/ML 2 ML VIAL IV PRN (09:15)
[2018-01-05] MEDS ORDERED: SILVER SULFADIAZINE 1% CR 50 GM JAR EXT PRN (09:15)
[2018-01-05] MEDS ORDERED: MAGNESIUM HYDROXIDE SUSP 30 ML UDC PO PRN (09:15)
[2018-01-05] MEDS ORDERED: DiphenhydrAMINE HCL 50 MG/ML VIAL IV PRN (09:15)
[2018-01-05] MEDS ORDERED: ZOLPIDEM TARTRATE 5 MG TAB PO PRN (09:15)
[2018-01-05] MEDS ORDERED: BISACODYL 10 MG SUPP PR PRN (09:15)
--- NOTE | 2018-01-05 09:42 | Anesthesiology Progress Note ---
Anesthesia Post Op Note Date & Time Jan 05, 2018 at 09:42 Vital Signs Pain Intensity: 2 Vital Signs Past 12 Hours Date Time Temp Pulse Resp B/P (MAP) Pulse Ox O2 Delivery O2 Flow Rate FiO2 01/05/18 09:25 76 12 142/60 98 Nasal Cannula 2 01/05/18 09:14 36.9 79 14 130/96 99 Oxymask 10 01/05/18 05:34 36.6 77 18 162/87 95 Room Air Notes Mental Status: alert / awake / arousable, participated in evaluation Pt Amnestic to Procedure: Yes Nausea / Vomiting: adequately controlled Pain: adequately controlled Airway Patency, RR, SpO2: stable & adequate BP & HR: stable & adequate Hydration State: stable & adequate Neuraxial Anesthesia: was administered, sensory block is resolving Anesthetic Complications: no major complications apparent
[2018-01-05] MEDS ORDERED: ATROPINE SULFATE 0.1 MG/ML 5ML SYR IV PRN (09:45)
[2018-01-05] MEDS ORDERED: EpHEDrine SULFATE INJ 50 MG/ML AMP IV PRN (09:45)
--- NOTE | 2018-01-05 09:49 | DIAGNOSTIC IMAGING REPORT ---
R KNEE 1 OR 2 VIEWS ROUTINE CLINICAL HISTORY: Degenerative arthritis. Postop medial joint compartment arthroplasty COMPARISON: Outside radiograph dated 12/20/2017 DISCUSSION: There are postsurgical changes of a medial joint compartment arthroplasty. The femoral tibial components appear well seated. There are overlying skin judy. There is gas present within soft tissues consistent with recent surgery. IMPRESSION: Postsurgical changes of a medial joint compartment arthroplasty Electronically signed by: Darian Maria M.D. 01/05/2018 9:47 AM Dictated Date/Time: 01/05/2018 9:46 AM
--- NOTE | 2018-01-05 10:59 | OPERATIVE REPORT ---
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 POSTOPERATIVE DIAGNOSIS: Same. PROCEDURE PERFORMED: Right Biomet Divide mobile-bearing partial knee replacement. COMPLICATIONS: None. ESTIMATED BLOOD LOSS: 20 mL. FLUID REPLACEMENT: 1600 mL crystalloid fluid replacement. ANESTHESIA: Spinal with adductor canal block. DRAINS: None. SPECIMENS: Right knee sent for pathology. TOURNIQUET TIME: 63 minutes at 300 mmHg. OPERATIVE INDICATIONS: The patient is a 67-year-old fairly active gentleman who has had about a 5-month history of right knee pain and discomfort. He was treating this conservatively without adequate relief. He had a knee arthroscopy done by my partner about 3 months ago and did not help him at all. If anything, it has just gotten worse over time. X-rays show progressive loss of the joint space with avascular necrosis and collapse of his medial femoral condyle and medial tibial plateau. He elected to proceed with surgical treatment/arthroplasty. OPERATIVE FINDINGS: Operative findings revealed varus deformity to his knee. He had a moderate to large knee joint effusion. He had extensive necrosis of the surface of the medial femoral condyle, and it looked like he had necrosis of the medial tibial plateau as well. The lateral and patellofemoral compartments are well preserved. OPERATIVE IMPLANTS: Operative implants consisted of 1. Biomet Divide size medium femoral component. 2. Biomet Divide right medial size D tibial tray. 3. A 4 mm mobile bearing insert. OPERATIVE PROCEDURE: Patient was taken to the operating room, identified and placed on the operative table in supine position. All contact areas were appropriately padded. IV antibiotics provided by anesthesia team. A spinal anesthetic and adductor canal block had been provided in the holding area. Arellano catheter was placed in sterile fashion. Right thigh tourniquet was then placed, and the right lower extremity was then prepped and draped in the usual sterile fashion. The right leg was elevated and exsanguinated with an Esmarch, and tourniquet was placed at 300 mmHg. An anterior approach to the right knee was then performed through a longitudinal incision, centered from the superior pole of the patella to just medial to the tibial tubercle. Sharp dissection was carried down through the subcutaneous tissue down to the level of the extensor mechanism. The subcutaneous tissue mobilized circumferentially, and a medial parapatellar arthrotomy incision was then made. Some slight subperiosteal dissection was carried out medially taking great care to protect the MCL. I resected some of the fat pad, which was scarred somewhat. I then examined the knee. The ACL was intact. The lateral and patellofemoral compartments were well preserved. He did have extensive necrosis changes at the medial femoral condyle, medial tibial plateau, and the surface. We elected to proceed with partial knee replacement. Femur was sized to size medium. The medium spoon was placed. The external tibial alignment jig was then placed on the anterior face of the tibia and attached to the medium spoon with the 4 G clamp. The tibial guide was then pinned. A proximal tibial cut was made. It really took fairly minimal bone, so I did remove the cameron and took an additional 2 mm of bone. The tibia was sized to a size D. Attention drawn to femur. The distal femur was entered with a sharp drill. Intramedullary guide was placed. A medium template was placed for a size 4 G clamp. The holes were created for the femoral component. Posterior cutting guide was placed, and a posterior cut was made. I then flexed the knee and resected the medial meniscus. We then used the 0 spigot and milled the distal femur. We then trialed the knee, and the 4 feeler gauge fit appropriately in both flexion and extension. I did not need to do any more reaming. I did use a curette and got rid of some of the soft necrotic bone, but the remainder of the bone in the femur did seem quite good and I felt was good enough to hold component adequately. We did cut down to healthy bone on the tibia as well. I prepared the distal femur with a posterior osteophyte cutting guide as well as the anterior milling device. I pinned the tibial tray and used the toothbrush blade to create the trough for the keel of the tibial tray. I then irrigated the wound. We then trialed the knee, and the 4 feeler gauge fit appropriately in both flexion and extension. We elected to place these implants. All trial implants were removed. I did place some cement holes in the distal femur for cement interdigitation. I did try and curette out any necrotic bony tissue. A single patch of Bio post G cement was mixed with additional 1 g of vancomycin due to his recent surgery. I then placed a size medium femoral component, a right medial size D tibial tray. I placed a 4 feeler gauge and brought the knee out into about 30 degrees short of full extension. All extraneous cement was removed. I held this until the cement hardened. I then trialed it, and we elected to place the 4 implant. The 4 implant was placed. Attention was then drawn toward closing. The wound was irrigated with copious amounts of pulsatile lavage solution. I did inject locally with 100 mL of a combination of 20 mL of Exparel, 30 mL of normal saline, 50 mL of 0.25% Marcaine with epinephrine. Patient did receive 1 g of tranexamic acid. The tourniquet was then let down for a final tourniquet time of 63 minutes. Hemostasis was assured with the use of electrocautery. The extensor mechanism was then closed with #1 Vicryl suture in a [id number] fashion. The subcutaneous tissues were then closed with #2 Dexon suture in a buried interrupted fashion. Skin was closed with skin judy. Leg was then cleaned and dried, and a sterile dressing of Xeroform, 4x4s, sterile cast padding, and Royer bandage was applied. The patient was then transferred to the recovery room in stable condition. The patient tolerated the procedure well with no complication. All needle and sponge counts were correct at the end of the operation. I attest to the content of the Intraoperative Record and any orders documented therein. Any exception s are noted below.
[2018-01-05] MEDS: D5W AND 1/2NSS + 20MEQ KCL 1,000 ML IV SCH ×2 (11:35→21:39)
--- NOTE | 2018-01-05 12:02 | PROGRESS NOTE ---
DATE: 01/05/2018 SUBJECTIVE: A 67-year-old gentleman postop from a right partial knee replacement. He is doing well. Not had any pain yet. No chest pain or shortness of breath. Not feeling dizzy or lightheaded. OBJECTIVE: VITAL SIGNS: Temperature 36.9. Vital signs stable. GENERAL: Reveals a healthy, pleasant, middle-aged male. He is lying in bed, looks quite comfortable. LUNGS: Clear to auscultation. HEART: Regular rate and rhythm. ABDOMEN: Soft, nontender, nondistended. EXTREMITIES: Grossly neurovascularly intact except as follows. Examination of the right lower extremity reveals the leg to be well aligned. Dressing is clean, dry, and intact. He can dorsiflex and plantarflex his foot appropriately. He is neurologically intact. X-RAYS: X-rays of the right knee from recovery room were reviewed. It shows a right partial knee replacement. Components looked to be in good position. No signs of problems. The film is slightly rotated. ASSESSMENT: A 67-year-old gentleman postop from a right partial knee replacement, doing pretty well. Pain is controlled. He is neurologically intact. PLAN: 1. DVT prophylaxis including thigh-high TEDs, SCDs, and aspirin twice a day. 2. PT/OT. Weight bear as tolerated. Right total knee protocol. 3. Pain control. Doing well with current pain regimen. 4. IV antibiotics x24 hours. 5. Disposition: Plan to discharge to home with some home health once adequately recovered.
[2018-01-05] MEDS: ACETAMINOPHEN 500 MG TAB PO SCH ×2 (13:35→21:39)
[2018-01-05] MEDS: KETOROLAC TROMETHAMINE 15 MG/ML VIAL IV. SCH ×2 (13:37→20:42)
[2018-01-05] MEDS: CHECK SCOPOLAMINE PATCH PLACEMENT SCH ×2 (15:46→23:54)
[2018-01-05] MEDS: CEFAZOLIN IV 2,000 MG in SYRINGE 0 ML IV SCH ×2 (15:47→23:54)
[2018-01-05] MEDS: PRAMIPEXOLE DIHYDROCHLORIDE 0.5 MG TAB PO SCH (17:04)
[2018-01-05] MEDS: TRAMADOL HCL 50 MG TAB PO PRN (17:11)
[2018-01-05] MEDS ORDERED: ACET-24 PO (18:14)
[2018-01-05] MEDS ORDERED: ASPI-461 PO (18:14)
[2018-01-05] MEDS ORDERED: ULT50X PO (18:14)
--- NOTE | 2018-01-05 18:16 | Discharge Instructions ---
Discharge Instructions Date of Service Jan 05, 2018. Admission Reason for Admission: Right Knee Degenerative Joint Disease, Knee Pain Discharge Discharge Diagnosis / Problem: Right Partial Knee Replacement Discharge Goals Goal(s): Decrease discomfort, Improve function, Increase independence, Improve disease control, Therapeutic intervention Activity Recommendations Activity Limitations: per Instructions/Follow-up section Weightbearing Status: Right weightbearing . Instructions / Follow-Up Instructions / Follow-Up ACTIVITY RECOMMENDATIONS: Physical Therapy: * You will go to physical therapy three times each week for four to six weeks after your surgery in order to regain your knee range of motion and to retrain your knee to work properly. * It is just as important to make sure you are getting your knee perfectly straight as it is to regain your knee bend. * Taking a pain pill an hour before therapy can help you have a more productive and comfortable therapy session. Home Exercise: * You were shown a series of exercises (heel props, heel slides, etc.) in the hospital. Do these exercises three to four times each day including the exercises you were shown in physical therapy. Walking: * Get up and walk several times each day. For the first four weeks, try not to stand or walk for more than one hour at a time. If you do stand or walk for more than one hour, you will not hurt anything, but your knee and leg will likely swell. * As you feel comfortable, you may change from the walker or crutches to a cane and then to independent walking. MEDICATIONS: New Medicine: * You will likely be taking one or more of these medications: 1. Tramadol - A quick and shorter-acting pain medication. Take one to two tablets every four to six hours to lessen your pain. 2. Aspirin - Thins your blood to lessen the chance of forming a blood clot. * The most common side effects of pain medicine and iron are nausea and constipation. If nausea or constipation is too much of a problem or if you have any questions about your new medicines or doses, call [facility] at . We will try to help you manage these issues. VERY IMPORTANT TO READ AND REVIEW" Pain: * The immediate post-operative period after knee replacement surgery is often quite painful. * You are given a prescription for pain medicine. You should take it, as directed, when you need it, especially before physical therapy and before going to bed. Pain that interferes with sleep is very common and can last several months. * You will likely need pain medicine for the first four to six weeks. It will not stop all of the pain. The pain will lessen and as you feel better, you may change to milder pain medicine such as Tylenol. * The most common side effects of pain medicine are nausea and constipation, so don't take more than you need. SPECIAL CARE INSTRUCTIONS: TEDs/Elastic Stockings: * The white elastic stockings help limit swelling and prevent blood clots from forming in your legs. The more you wear them, the more they work. * Wear them for six weeks after knee replacement surgery and four weeks after partial knee replacement. Prevention of Infection: * Take antibiotics one hour before any dental cleaning, dental work, urological procedure, gastrointestinal procedure or any invasive surgery in order to prevent your new joint from getting infected. * You may get the antibiotics from the doctor performing the procedure or you may call our office at before and we will call in a prescription to the pharmacy of your choice. Things to Watch For: * Drainage from the incision site that occurs more than one week after your surgery. * Severely increased knee/leg pain or swelling. * Increased redness at the incision site. * Fever above 102 degrees Fahrenheit. * Unusual chest pain or shortness of breath. * Unusual pain or burning with urination. Call [facility] at with any of the above problems or if you have any questions about your medicines or recovery. FOLLOW UP VISIT: Make an appointment to see your doctor for approximately two weeks after surgery for a progress check and staple removal by calling the office at . Current Hospital Diet Patient's current hospital diet: Regular Diet Discharge Diet Recommended Diet: Regular Diet Procedures Procedures Performed: Right knee unicompartmental replacement Pending Studies Studies pending at discharge: no Laboratory Results Lipid Panel Test 11/22/17 07:45 Range/Units Triglycerides Level 277 H 0-150 mg/dl Cholesterol Level 189 0-200 mg/dl HDL Cholesterol 42 mg/dl Cholesterol/HDL Ratio 4.5 LDL Cholesterol, Calculated 92 mg/dl Medical Emergencies . Who to Call and When: Medical Emergencies: If at any time you feel your situation is an emergency, please call 911 immediately. . Non-Emergent Contact Non-Emergency issues call your: Surgeon . "Provider Documentation" section prepared by Keo Stock. .
[2018-01-05] MEDS: ASPIRIN 81 MG ECTAB PO SCH (20:42)
[2018-01-05] MEDS: DOCUSATE SODIUM 100 MG CAP PO SCH (20:42)
[2018-01-05] MEDS: POTASSIUM CHLORIDE 10 MEQ TABCR PO SCH (20:43)
[2018-01-05] MEDS ORDERED: SENNA 8.6 MG TAB PO SCH (21:00)
[2018-01-05] MEDS ORDERED: PRAVASTATIN SOD 20 MG TAB PO SCH (21:00)
[2018-01-06] MEDS: KETOROLAC TROMETHAMINE 15 MG/ML VIAL IV. SCH ×2 (02:10→09:09)
[2018-01-06 03:15] VITALS: BP 137/77; PULSE 64; TEMP 36.9; O2SAT 94
[2018-01-06] MEDS: TRAMADOL HCL 50 MG TAB PO PRN ×2 (03:21→09:16)
[2018-01-06] MEDS: ACETAMINOPHEN 500 MG TAB PO SCH (05:41)
[2018-01-06] MEDS ORDERED: LEVOTHYROXINE 88 MCG TAB PO SCH (06:00)
[2018-01-06] MEDS: D5W AND 1/2NSS + 20MEQ KCL 1,000 ML IV SCH (07:30)
[2018-01-06 07:59] VITALS: BP 107/72; PULSE 65; TEMP 36.7; O2SAT 94
[2018-01-06] MEDS: CHECK SCOPOLAMINE PATCH PLACEMENT SCH (08:00)
[2018-01-06] MEDS ORDERED: CHLORTHALIDONE 25 MG TAB PO SCH (09:00)
[2018-01-06] MEDS ORDERED: ESCITALOPRAM OXALATE 20 MG TAB PO SCH (09:00)
[2018-01-06] MEDS ORDERED: PANTOprazole SOD 40 MG TAB PO SCH (09:00)
[2018-01-06] MEDS ORDERED: NON-FORMULARY MEDICATION (Omeprazole (Prilosec) 20 MG) PO SCH (09:00)
[2018-01-06] MEDS ORDERED: GABAPENTIN 100 MG CAP PO SCH (09:00)
[2018-01-06] MEDS ORDERED: MULTIVITAMIN TAB PO SCH (09:00)
[2018-01-06] MEDS: DOCUSATE SODIUM 100 MG CAP PO SCH (09:08)
[2018-01-06] MEDS: ASPIRIN 81 MG ECTAB PO SCH (09:08)
[2018-01-06] MEDS: PRAMIPEXOLE DIHYDROCHLORIDE 0.5 MG TAB PO SCH (09:08)
[2018-01-06] MEDS: POTASSIUM CHLORIDE 10 MEQ TABCR PO SCH (09:09)
--- NOTE | 2018-01-06 09:34 | Anesthesiology Progress Note ---
Anesthesia Post Op Note Date & Time Jan 06, 2018 at 09:33 Vital Signs Vital Signs Past 12 Hours Date Time Temp Pulse Resp B/P (MAP) Pulse Ox O2 Delivery O2 Flow Rate FiO2 01/06/18 07:59 36.7 65 17 107/72 (84) 94 Room Air 01/06/18 03:15 36.9 64 14 137/77 (97) 94 Room Air 01/05/18 23:59 Room Air 01/05/18 23:28 36.4 66 18 126/73 (90) 96 Room Air Notes Mental Status: alert / awake / arousable, participated in evaluation Pt Amnestic to Procedure: Yes Nausea / Vomiting: adequately controlled Pain: adequately controlled Airway Patency, RR, SpO2: stable & adequate BP & HR: stable & adequate Hydration State: stable & adequate Neuraxial Anesthesia: sensory block resolved Anesthetic Complications: no major complications apparent
[2018-01-06 10:27] VITALS: BP 107/72; PULSE 65; TEMP 36.7; O2SAT 94
--- NOTE | 2018-01-06 10:40 | PROGRESS NOTE ---
DATE: 01/06/2018 SUBJECTIVE: A 67-year-old gentleman postop day 1 from right partial knee replacement. He is doing pretty well. He describes mostly knee soreness. No chest pain, no shortness of breath. Not feeling dizzy or lightheaded. OBJECTIVE: VITAL SIGNS: Temperature 36.7. Stable. GENERAL: Examination reveals a healthy, pleasant, middle-aged male. He is sitting up in bed and looks comfortable. EXTREMITIES: Examination of the right leg reveals the leg to be well aligned. Dressing is clean, dry, and intact. He can dorsiflex and plantarflex his foot appropriately. He can do a good straight leg raise. ASSESSMENT: A 67-year-old gentleman postop day 1 from a right partial knee replacement, doing well. The pain is controlled. He is neurologically intact. PLAN: 1. DVT prophylaxis including thigh-high TEDs, SCDs, and aspirin twice a day. 2. PT/OT. Weight bear as tolerated. Right total knee protocol. 3. Pain control, doing well with current pain regimen. 4. Disposition: Plan is to discharge to home with some home health later today if he does okay in therapy.
== END 2018-01-06 11:23 | disposition home health service (06) | DRG 470 ==
LOC: C.ACU 04:46 → C.3E 07:00 → ENRESERV 09:37
PROVIDERS: ADMIT Orthopaedic Surgery Sports Medicine; ATTEND Orthopaedic Surgery Sports Medicine
PROC: 0SRC0L9 Replacement of Right Knee Joint with Medial Unicondylar Synthetic Substitute, Cemented, Open Approach (ICD-10-PCS; principal; 2018-01-05 07:15)
DX: M17.11 Unilateral primary osteoarthritis, right knee (principal); M87.061 Idiopathic aseptic necrosis of right tibia; M87.051 Idiopathic aseptic necrosis of right femur; I10 Essential (primary) hypertension; E78.00 Pure hypercholesterolemia, unspecified; G47.30 Sleep apnea, unspecified; F41.9 Anxiety disorder, unspecified; F32.9 Major depressive disorder, single episode, unspecified; E03.9 Hypothyroidism, unspecified; K21.9 Gastro-esophageal reflux disease without esophagitis; N40.0 Benign prostatic hyperplasia without lower urinary tract symptoms; F17.220 Nicotine dependence, chewing tobacco, uncomplicated; Z79.899 Other long term (current) drug therapy; Z79.82 Long term (current) use of aspirin

== ENCOUNTER → 2018-02-07 | Outpatient (CLI) | payer OTHER ==
[~2018-02-07] MED LIST changes: +ACET-24 PO; -ASPCH81X PO; +ASPI-461 PO; +ULT50X PO
[2018-02-07 12:47] LABS: BLOOD UREA NITROGEN 15 mg/dl (7-18); CALCIUM 9.3 mg/dl (8.5-10.1); CARBON DIOXIDE 27 mmol/L (21-32); CREATININE 1.05 mg/dl (0.60-1.40); GLUCOSE 100 mg/dl (70-99); POTASSIUM 3.8 mmol/L (3.5-5.1); SODIUM 137 mmol/L (136-145)
== END | disposition home or self-care (01) ==
LOC: C.LABPVFM 07:29
PROVIDERS: ATTEND Nurse Practitioner
DX: I10 Essential (primary) hypertension (principal); E87.6 Hypokalemia

== ENCOUNTER 2018-06-04 23:26 | Observation (INO) ==
--- NOTE | 2018-06-04 23:32 | Emergency Department Note ---
Entered by Lee Ann Giraldo acting as a scribe for Christopher Whiteside MD ED Provider Note Name: Ramses Gonzalez Age: 67 Arrives Via: Private Vehicle Informant: Patient and family CC: Leg pain HPI: 67 year old male arrives for evaluation of leg pain beginning x3 months ago. Pain was intermittent since onset, but since has worsened since for the past few days, now constant. He notes pain begins in the lower back and radiates down the left leg. He shares he has associated tingling in the left foot. Pain in both areas are moderate in severity. He includes that since worsening pain, he has had trouble walking. Patient notes he did have a recent MRI, which noted a pinched nerve. He notes that he used medical marijuana for pain, with no subsiding of sx. He also shares that he has used narcotics, which made him nauseous. Patient shares that he did have knee surgery in October 2017 and December 2017, which made him less active than normal. He shares he is scheduled to see pain management for 06/08/18 after recent MRI. Patient denies any current nausea, vomiting, fevers, chills, or any other complaints or concerns at this time. ROS: See above HPI for pertinent positives & negatives. A total of 6 systems reviewed and were otherwise negative. Past Medical History: BPH, Restless legs, hypothyroid, depression, hyperlipidemia, HTN Past Surgical History: Rt Knee Surgery, cholecystectomy Family History: Denies significant family history Social History: Former smoker, feels safe at home, lives with . Home Medications: Levothyroxine sodium 88 mcg 1 tab PO QAM, Gabapentin 100 mg PO QAM, Acetaminophen 500 mg PO, see chart for other medications Allergies: None Physical: Vitals: BP 164/79, Pulse 75, Resp 18, Temp 98.4, O2 Sat 94 on Room Air Exam: GENERAL: Patient is uncomfortable appearing. NECK: No masses appreciated, no meningismus, trachea is midline. RESPIRATORY: No dyspnea. Clear to auscultation and equal bilaterally. No wheeze , no rhonchi. CARDIOVASCULAR: Regular rate and rhythm. No murmurs, rubs, gallops appreciated. GASTROINTESTINAL: Abdomen soft, non-tender, no peritonitis. Bowel sounds positive. No masses appreciated. BACK: No midline tenderness, no CVA tenderness EXTREMITIES: Normal motion all extremities, no cyanosis, no edema. NEUROLOGIC: Alert and oriented, no acute motor or sensory deficits, no focal weakness, cranial nerves grossly intact. SKIN: No rash, no jaundice, no diaphoresis. ED Course: Prior Medical Record, Triage/Nursing Notes, Medications, Allergies reviewed by Me Vital Signs: reviewed and remarkable for HTN Labs: Reviewed and remarkable for wnl CBC, BMP Interventions: Saline Lock, Dilaudid 1mg IV, Dilaudid .5mg IV x 2, Solu-Medrol 125mg IV, NSS infusion Imaging: Review of MRI 05/23/18 S1 nerve root impingement by disc Consults: [address] Stock, who accepts patient for admission. Reassessments/Times: 2335: Past medical records reviewed. The patient was evaluated in room B10, and a complete history and physical examination were performed. 0034: Reassessed patient. Daughter at bedside asking why not more is being done for father�s back issue. Preferred to have pain management come in tonight or transfer to higher level of care. Discussed results which cannot be transferred. After further results, discussed possible observation to care. 0207 Reassessed patient regarding pain. Pain is returning andworsens with movement. Patient does not feel comfortable going home. Plan to discuss with Dr. Stock [address] Stock, who accepts patient for admission. Blood pressure: Elevated - Woodruff to be Situation. Hospitalist to monitor Disposition: Hospitalist Evaluation. Prescriptions: PDMP search shows 2 prescriptions for tramadol over last 12 months. No concerning findings. Differentials: Nerve impingement, cauda equina, subdural abscess, muscular pain , shingles, arterial inclusion amongst other pathologies. Medical Decision Making: Pleasant 67 yr old male with left sided back pain radiating to toes. no neuro deficits, good pulses and denies urinary/bowel issues. He is clearly quite uncomfortable and on arrival discussed plan for pain control and go from there. Daughter arrived and was quite upset that I wasn't doing more to take care of this issue, though I explained plan, as well as limitations of this (and all) EDs in setting of sciatica. We reviewed his already done MRI, the findings and the reasons we start with pain control rather than emergent surgery/other interventions. Family seemed to feel better with plan. Once it became clear that pain was going to be difficult to get under control well enough to dc, we decided on hospitalist evaluation. At this time there is no indication for emergent surgery evaluation as neuro intact. Will start on steroids given persistent pain. All were on board with plan. Impression: Acute Left-Sided back pain with sciatica Christopher Whiteside MD The scribe's documentation has been prepared under my direction and personally reviewed by me in its entirety. I confirm that the note above accurately reflects all work, treatment, procedures, and medical decision making performed by me. Impression & Plan Acute left-sided back pain with sciatica Past Med/Surg History Medical History Restless leg Lumbar radiculopathy BPH (benign prostatic hyperplasia) GERD (gastroesophageal reflux disease) Hypothyroidism Depression Anxiety Hyperlipidemia Hypertension Surgical History S/P cholecystectomy S/P right knee surgery Family History Other No significant family history Social History Feels Safe at Home: Yes Smoking Status: Former smoker Hx Alcohol Use: No Hx Substance Use: No Results & Data Vital Signs Vital Signs - 24 hr 06/04/18 23:29 06/05/18 00:49 06/05/18 02:25 Temperature 36.9 C Temperature Source Oral Sepsis Recent Fever Within 48 Hours No Sepsis Action Taken by Nursing No Action Required Pulse Rate 75 Pulse Rate [Finger] 76 76 Respiratory Rate 18 18 18 Respiratory Effort / Characteristics Non-Labored Spontaneous Respiratory Depth Normal Respiratory Pattern Regular Blood Pressure 164/79 H Blood Pressure [Left Arm] 115/56 L 142/75 H Blood Pressure Mean 107 Blood Pressure Mean [Left Arm] 75 97 Blood Pressure Position Sitting Pulse Oximetry 94 90 92 Oxygen Delivery Method Room Air Room Air Room Air Laboratory Data Result diagrams: 06/05/18 02:20 06/05/18 02:20 Lab Results 06/05/18 06/05/18 Range/Units 02:20 02:20 WBC 8.10 (4.8-10.8) K/uL RBC 4.34 L (4.7-6.1) M/uL Hgb 14.0 (14.0-18.0) g/dL Hct 40.1 L (42-52) % MCV 92.4 (80-100) fL MCH 32.3 (25-34) pg MCHC 34.9 (32-36) g/dL RDW Std Deviation 44.9 (36.4-46.3) fL RDW Coeff of Surinder 13.3 (11.5-14.5) % Plt Count 237 (130-400) K/uL MPV 10.5 H (7.4-10.4) fL Immature Gran % (Auto) 0.6 % Neut % (Auto) 61.8 % Lymph % (Auto) 24.3 % [place] % (Auto) 8.5 % Eos % (Auto) 4.1 % Baso % (Auto) 0.7 % Immature Gran # (Auto) 0.05 H (0.00-0.02) K/uL Neut # (Auto) 5.00 (1.4-6.5) K/uL Lymph # (Auto) 1.97 (1.2-3.4) K/uL [place] # (Auto) 0.69 H (0.11-0.59) K/uL Eos # (Auto) 0.33 (0-0.5) K/uL Baso # (Auto) 0.06 (0-0.2) K/uL Sodium 140 (136-145) mmol/L Potassium 3.9 (3.5-5.1) mmol/L Chloride 108 H (98-107) mmol/L Carbon Dioxide 27 (21-32) mmol/L Anion Gap 5.0 (3-11) BUN 20 H (7-18) mg/dl Creatinine 1.19 (0.6-1.4) mg/dl Est Cr Clr Drug Dosing 58.3 ml/min Est GFR ( Amer) 72.8 Est GFR (Non-Af Amer) 62.8 BUN/Creatinine Ratio 16.7 (10-20) Glucose 111 H (70-99) mg/dl Calcium 9.1 (8.5-10.1) mg/dl Administered Medications Discontinued Medications Hydromorphone HCl (Dilaudid) 1 mg IV NOW STA Stop: 06/04/18 23:45 Last Admin: 06/04/18 23:54 Dose: 1 mg Hydromorphone HCl (Dilaudid) 0.5 mg IV NOW STA Stop: 06/05/18 00:46 Last Admin: 06/05/18 00:48 Dose: 0.5 mg Hydromorphone HCl (Dilaudid) 0.5 mg IV NOW STA Stop: 06/05/18 02:12 Last Admin: 06/05/18 02:17 Dose: 0.5 mg Sodium Chloride (Nss 1000ml) 500 mls @ 999 mls/hr IV .Q31M ONE Stop: 06/05/18 00:14 Last Infusion: 06/05/18 00:26 Dose: 0 mls/hr Admin: 06/04/18 23:54 Dose: 999 mls/hr Methylprednisolone (Solumedrol) 125 mg IV NOW STA Stop: 06/05/18 02:11 Last Admin: 06/05/18 02:16 Dose: 125 mg Discharge Plan Visit Data Chief Complaint: Leg Pain/Injury Stated Complaint: PAIN DOWN LEFT LEFT ED Provider: Christopher Whiteside Discharge Problem: Acute left-sided back pain with sciatica Discharge Instructions Interventions: ED Discharge Assessment Last Done: 06/05/18 03:36 Forms Stand Alone Forms: My [facility] Prescriptions Prescriptions: No Action aspirin [Aspir-81] 81 mg Tablet,Delayed Release (Dr/Ec) 81 mg PO HS RF: 0 coenzyme Q10 [CoQ-10] 100 mg Capsule 100 mg PO QAM RF: 0 escitalopram oxalate 20 mg Tablet 20 mg PO DAILY RF: 0 levothyroxine 88 mcg Tablet 88 mcg PO DAILY RF: 0 omeprazole 20 mg Tablet,Delayed Release (Dr/Ec) 20 mg PO DAILY RF: 0 potassium chloride 10 mEq Tablet,Er Particles/Crystals 10 meq PO BID RF: 0 pravastatin 20 mg Tablet 20 mg PO QPM RF: 0 chlorthalidone 25 mg Tablet 25 mg PO QAM RF: 0 dronabinol 5 mg/mL Solution 10 mg PO TID RF: 0 Referrals Referrals: Kavita Hager CRNP [Primary Care Provider] - The scribe's documentation has been prepared under my direction and personally reviewed by me in its entirety. I confirm that the note above accurately reflects all work, treatment, procedures, and medical decision making performed by me.
[2018-06-04] MEDS ORDERED: HYDROmorphone INJ 1 MG/ML SYRINGE IV STA (23:44)
[2018-06-04] MEDS ORDERED: SODIUM CHLORIDE 0.9% 1000ML 500 ML IV ONE (23:44)
[2018-06-05] MEDS ORDERED: HYDROmorphone INJ 0.5 MG/0.5 ML SYR IV STA ×2 (00:45→02:11)
[2018-06-05] MEDS ORDERED: methylPREDNISolone 125 MG/2 ML VIAL IV STA (02:10)
--- NOTE | 2018-06-05 02:34 | History & Physical Report ---
Date of Service June 05, 2018 Assessment & Plan (1) Sciatica: Disc bulge with S1 impingement, acute exacerbation of chronic low back pain. Low concern for cauda equina syndrome at this time. Patient administered Solumedrol and Dilaudid in the ER with minimal reliev * Observation to Med Surge * Tylenol, Lidoderm patch, Toradol PRN, Morphine PRN, Flexeril and heat * Neuro checks q 6 hours * Present on Admission?: Yes (2) Hypertension: Blood pressure mildlly elevated at present 142/75 * Continue Chlorthalidone * Continue to monitor * (3) Hyperlipidemia: Stable. Chronic * Continue Pravastatin * (4) Depression: Chronic. Stable * Continue Celexa * (5) Hypothyroidism: Stable. Chronic * Continue Synthroid * (6) GERD (gastroesophageal reflux disease): Chronic * Continue Omeprazole * (7) Restless leg: Continue Dronabinol F/E/N - Heplock. Monitor electrolytes and replete as needed. Regular diet as tolerated Ppx - low risk for DVT Code - [facility] of Present Illness Chief Complaint: Left-sided back pain with sciatica Primary Care Provider: KAYLA Woodruff Mr. Campos is a pleasant 67-year-old male with history of hypertension , hyperlipidemia, hypothyroidism, restless leg syndrome. Also with lumbar radiculopathy and DJD. Patient began experiencing left-sided sciatic pain approximately 3 months ago. He is controlling his pain at home with Tylenol and Aleve as needed. He was seen by neurology on 18 May 2018 with complaints of worsening sciatic pain. A lumbar MRI was ordered at that time which revealed small disc herniation with 8 mm fragment causing S1 nerve impingement. Degenerative edema at L5-S1. No significant compromise of the central canal. Patient has an appointment with pain management this Wednesday. Yesterday patient did yard work, pulling leaves from under his boat. He feels that this may have exacerbated his back pain. This morning he had a difficult time getting out of bed secondary to back pain. Also complaining of numbness and tingling down the posterior thigh into the foot. He denies weakness, saddle anesthesia or bowel/bladder incontinence. No fever or trauma. No additional complaints at this time. ER course: Dilaudid 0.5 mg IV, 1mg IV, Solumedrol 125 mg IV Allergies Allergy/AdvReac Type Severity Reaction Status Date / Time No Known Allergies Allergy Verified 06/05/18 01:01 Home Medications Home Medications Medication Instructions Recorded Confirmed Type aspirin [Aspir-81] 81 mg PO HS 06/05/18 06/05/18 History chlorthalidone 25 mg PO QAM 06/05/18 06/05/18 History coenzyme Q10 [CoQ-10] 100 mg PO QAM 06/05/18 06/05/18 History dronabinol 10 mg PO TID 06/05/18 06/05/18 History escitalopram oxalate 20 mg PO DAILY 06/05/18 06/05/18 History levothyroxine 88 mcg PO DAILY 06/05/18 06/05/18 History omeprazole 20 mg PO DAILY 06/05/18 06/05/18 History potassium chloride 10 meq PO BID 06/05/18 06/05/18 History pravastatin 20 mg PO QPM 06/05/18 06/05/18 History Past Med/Surg History Medical History Restless leg Lumbar radiculopathy BPH (benign prostatic hyperplasia) GERD (gastroesophageal reflux disease) Hypothyroidism Depression Anxiety Hyperlipidemia Hypertension Surgical History S/P cholecystectomy S/P right knee surgery Family History Other No significant family history Social History Feels Safe at Home: Yes Smoking Status: Former smoker Hx Alcohol Use: No Hx Substance Use: No Review of Systems All systems reviewed & are unremarkable except as noted in HPI & below Physical Exam 2 Vital Signs (Past 24 Hours): Last Vital Signs Temp 36.9 C 06/04/18 23:29 Pulse 76 06/05/18 02:25 Resp 18 06/05/18 02:25 BP 142/75 H 06/05/18 02:25 Pulse Ox 92 06/05/18 02:25 Physical Exam: General: Mild distress secondary to pain, non-toxic in appearance, AA&O x 4 Skin: warm, dry, intact, no rashes or lesions HEENT: NC/AT, PERRL, EOMI, anicteric sclera, conjunctiva without injection, external ear normal to inspection and nontender, nares patent, moist mucus membranes, dentition intact, no oropharyngeal lesions, neck supple, trachea midline, no LAD, no thyromegaly, no JVD Heart: +S1/S2, regular, no m/r/g Lungs: equal air entry bilaterally, no rales/rhonchi/wheezes Abd: +BS, soft, NT/ND, no masses/organomegaly/ascites Ext: warm, 2+ pulses in UE/LE bilaterally, no clubbing/cyanosis or edema Neuro: nonfocal, patient AA&O x 4, speech intact, no facial droop, moving all extremities on command with equal strength 5/5 Tenderness with palpation of left sacral area. Numbness of LLE, strength intact , no saddle anesthesis Results & Data Laboratory Results Lab Results 06/05/18 Range/Units 02:20 WBC 8.10 (4.8-10.8) K/uL RBC 4.34 L (4.7-6.1) M/uL Hgb 14.0 (14.0-18.0) g/dL Hct 40.1 L (42-52) % MCV 92.4 (80-100) fL MCH 32.3 (25-34) pg MCHC 34.9 (32-36) g/dL RDW Std Deviation 44.9 (36.4-46.3) fL RDW Coeff of Surinder 13.3 (11.5-14.5) % Plt Count 237 (130-400) K/uL MPV 10.5 H (7.4-10.4) fL Immature Gran % (Auto) 0.6 % Neut % (Auto) 61.8 % Lymph % (Auto) 24.3 % [place] % (Auto) 8.5 % Eos % (Auto) 4.1 % Baso % (Auto) 0.7 % Immature Gran # (Auto) 0.05 H (0.00-0.02) K/uL Neut # (Auto) 5.00 (1.4-6.5) K/uL Lymph # (Auto) 1.97 (1.2-3.4) K/uL [place] # (Auto) 0.69 H (0.11-0.59) K/uL Eos # (Auto) 0.33 (0-0.5) K/uL Baso # (Auto) 0.06 (0-0.2) K/uL Diagnostic Findings MRI OF THE LUMBAR SPINE WITHOUT IV CONTRAST - 23 May 2018 CLINICAL HISTORY: Lumbar radiculopathy. Left lower extremity pain, tingling, and numbness. COMPARISON STUDY: MRI of the lumbar spine dated 05/04/2017. TECHNIQUE: MRI of the lumbar spine is performed utilizing various T1 and T2 weighted sequences in the axial and sagittal planes. IV contrast was not administered for this examination. FINDINGS: Lumbar spine: Vertebral body height and alignment are maintained throughout the lumbar spine. Degenerative endplate edema is seen at L5-S1. Normal marrow signal intensity is otherwise preserved throughout the visualized osseous structures. The transverse and spinous processes appear intact. There is no evidence of spondylolysis. No destructive bony lesion is seen. Intervertebral discs: Degenerative disc desiccation is seen in the lumbar spine. There is mild to moderate loss of height at L5-S1. Severe loss of height is noted at T11-T12. The remaining disc spaces are preserved. Spinal cord: The visualized spinal cord is normal in morphology and signal intensity. Conus medullaris terminates at the level of L1. The nerve roots of the cauda equina are normal in morphology. L1-L2: Unremarkable. L2-L3: There is minimal posterior disc bulge with annular fissure. The central canal and neural foramina are patent. L3-L4: Unremarkable. L4-L5: There is minimal disc bulge eccentric to the right. The central canal is clear with a minimum AP diameter of 10 mm. Mild facet arthropathy is of no consequence. L5-S1: There is a small left-sided disc herniation with an extruded fragment that measures up to 8 mm. This has progressed from the 05/04/2017 examination. There is no significant acquired compromise of the central canal. This abuts the transiting left S1 nerve root. There is left-sided subarticular stenosis, which may abut the exiting left L5 nerve root. Facet arthropathy causes minimal left-sided neural foraminal stenosis. A small posteriorly oriented synovial cyst on the left is incidentally noted and measures 7 mm. Sacrum: The visualized sacrum is normal in morphology and signal intensity. Soft tissues: The paraspinous soft tissues are normal in appearance. No retroperitoneal adenopathy is seen. The psoas musculature is normal and symmetric. IMPRESSION: 1. There is a small disc herniation eccentric to the left with an 8 mm fragment. This likely impinges on the transiting left S1 nerve root. 2. There is no significant acquired compromise of the central canal. 3. Degenerative edema is noted at L5-S1. 4. See above discussion for detailed level by level analysis. Dictated: 05/23/2018 8:20 AM Transcribed: 05/23/2018 9:11 AM Danya [id number] [facility] Electronically signed by: Jian Robertson M.D. 05/23/2018 9:16 AM Code Status & VTE Plan Code Status FULL Critical Care Time Critical Care Time: No _ (1) Sciatica Laterality: left Qualified Code(s): M54.32 - Sciatica, left side (2) Hypertension Hypertension type: essential hypertension Qualified Code(s): I10 - Essential (primary) hypertension (3) Hyperlipidemia Hyperlipidemia type: unspecified Qualified Code(s): E78.5 - Hyperlipidemia, unspecified (4) Depression Depression Type: major depressive disorder Major depression recurrence: recurrent Active/Remission status: in remission of unspecified degree Qualified Code(s): F33.40 - Major depressive disorder, recurrent, in remission, unspecified (5) Hypothyroidism Hypothyroidism type: unspecified Qualified Code(s): E03.9 - Hypothyroidism, unspecified (6) GERD (gastroesophageal reflux disease) Esophagitis presence: esophagitis presence not specified Qualified Code(s): K21.9 - Gastro-esophageal reflux disease without esophagitis
[2018-06-05 02:37] LABS: Basophils # (auto) 0.06 K/uL (0-0.2); Basophils % (auto) 0.7 %; Eosinophils # (auto) 0.33 K/uL (0-0.5); Eosinophils % (auto) 4.1 %; Hematocrit (blood only) 40.1 % (42-52); Immature Granulocytes # (auto) 0.05 K/uL (0.00-0.02); Immature Granulocytes % (auto) 0.6 %; Lymphocytes # (auto) 1.97 K/uL (1.2-3.4); Lymphocytes % (auto) 24.3 %; Mean Corpuscular Hgb Conc 34.9 g/dL (32-36); Mean Corpuscular Volume 92.4 fL (80-100); Mean Platelet Volume 10.5 fL (7.4-10.4); Monocytes # (auto) 0.69 K/uL (0.11-0.59); Monocytes % (auto) 8.5 %; Neutrophils % (auto) 61.8 %; Platelet Count 237 K/uL (130-400); RDW Coefficient of Variation 13.3 % (11.5-14.5); RDW Standard Deviation 44.9 fL (36.4-46.3); Red Blood Count 4.34 M/uL (4.7-6.1)
[2018-06-05 03:18] LABS: BUN Creatinine Ratio 16.7 (10-20); Calcium 9.1 mg/dl (8.5-10.1); Creatinine Clr Calc Pharmacy 58.3 ml/min; Est GFR (African American) 72.8; Est GFR (Non-African American) 62.8; Potassium 3.9 mmol/L (3.5-5.1)
[2018-06-05] MEDS ORDERED: ONDANSETRON INJ 2 MG/ML 2 ML VIAL IV PRN (04:33)
[2018-06-05] MEDS ORDERED: DOCUSATE SODIUM 100 MG CAP PO PRN (04:33)
[2018-06-05 05:15] LABS: BUN Creatinine Ratio 16.2 (10-20); Calcium 9.3 mg/dl (8.5-10.1); Creatinine Clr Calc Pharmacy 67.2 ml/min; Est GFR (African American) 77.5; Est GFR (Non-African American) 66.9; Magnesium 2.1 mg/dl (1.8-2.4); Phosphorus 3.7 mg/dl (2.5-4.9); Potassium 3.8 mmol/L (3.5-5.1)
[2018-06-05] MEDS: KETOROLAC TROMETHAMINE 15 MG/ML VIAL IV PRN ×2 (05:27→11:38)
[2018-06-05] MEDS: MoRPHine SULFATE 2 MG/ML CARP IV PRN ×2 (05:28→09:48)
[2018-06-05] MEDS: ACETAMINOPHEN 500 MG TAB PO SCH ×3 (05:41→22:21)
[2018-06-05] MEDS: LEVOTHYROXINE SODIUM 88 MCG TABLET PO SCH (05:41)
[2018-06-05] MEDS: DRONABINOL 2.5 MG CAP PO SCH ×3 (08:59→20:46)
[2018-06-05] MEDS: CHLORTHALIDONE 25 MG TAB PO SCH (08:59)
[2018-06-05] MEDS: PANTOprazole 40 MG TAB PO SCH (08:59)
[2018-06-05] MEDS: ESCITALOPRAM OXALATE 20 MG TAB PO SCH (08:59)
[2018-06-05] MEDS: POTASSIUM CHLORIDE 10 MEQ TABCR PO SCH ×2 (08:59→18:46)
[2018-06-05] MEDS: CYCLOBENZAPRINE HCL 10 MG TAB PO SCH ×2 (08:59→20:50)
[2018-06-05] MEDS: LIDOCAINE 5% 1 PATCH TD SCH (09:00)
[2018-06-05] MEDS ORDERED: NON-FORMULARY MEDICATION (Coenzyme Q10 [Coq-10] 100 MG) PO SCH (09:00)
[2018-06-05] MEDS: DEXAMETHASONE SOD PHOSPHATE 4 MG in SYRINGE 0 ML IV SCH ×3 (09:48→20:51)
[2018-06-05] MEDS: GABAPENTIN 100 MG CAP PO SCH ×3 (09:48→20:48)
[2018-06-05] MEDS ORDERED: OXYCODONE HCL IR 5 MG TAB (IMMEDIATE RELEASE) PO PRN (12:57)
[2018-06-05] MEDS ORDERED: PRAVASTATIN SOD 20 MG TAB PO SCH (21:00)
[2018-06-05] MEDS ORDERED: ASPIRIN 81 MG ECTAB PO SCH (21:00)
[2018-06-05] MEDS ORDERED: NORTRIPTYLINE HCL 10 MG CAP PO SCH (21:00)
--- NOTE | 2018-06-05 21:27 | Hospitalist Progress Note ---
Date of Service June 05, 2018 Assessment & Plan (1) Sciatica: Disc bulge with S1 impingement on left. Symptoms and signs c/w the s1 nerve root compression. Neuro exam intact. Plan - Decadron 4mg IV q6h Since he cannot take gabapentin for neuropathic pain try nortryptiline 10mg at HS Try oxycodone prn in cesia of IV pain meds to see if oral pain meds can hold his pain toradol prn stretching/walking as tolerated flexeril BID as well HOLD aspirin moving forward since he potentially may need outpatient epidural steroid injection for the s1 radiculopathy in the future can d/c home when pain is reasonably controlled (2) Hypertension: cont outpatient meds acceptable control (3) Hyperlipidemia: statin (4) Depression: cont celexa (5) Hypothyroidism: synthroid (6) GERD (gastroesophageal reflux disease): PPI (7) Restless leg: takes dronabinol for this??? I am confused by that will need to inquire with him about such would expect mirapex or requip use rather than marinol address prior to d/c (8) DVT prophylaxis: scds for now if he plans on staying longer than overnight then add heparin SC but hopefully d/c in the AM tomorrow Subjective left leg pain remains but is improved from yesterday has left posterior thigh pain and left lateral and platar foot pain from the s1 radiculopathy able to ambulate more comfortably today was supposed to see pain management THIS WEDNESDAY for consultation for the MRI findings of s1 nerve impingement and his severe radicular pain cannot take gabapentin due to prior over-sedation from such Constitutional: no fever Respiratory: no cough and no dyspnea Cardiovascular: no chest pain Gastrointestinal: no abdominal pain and no fecal incontinence Genitourinary (Male): no urinary incontinence Physical Exam 2 Vital Signs (Past 24 Hours): Last Vital Signs Temp 36.7 C 06/05/18 14:58 Pulse 69 06/05/18 14:58 Resp 20 06/05/18 14:58 BP 109/58 L 06/05/18 14:58 Pulse Ox 93 06/05/18 14:58 Constitutional: well developed and well nourished; no acute distress Respiratory: normal respiratory effort, lungs clear to auscultation Cardiovascular: Heart Sounds: normal S1 and normal S2 Vessels: posterior tibial pulses present and dorsalis pedis pulses present; no JVD Gastrointestinal (Abdomen): normal bowel sounds, soft, nontender, no hepatosplenomegaly Musculoskeletal: no cyanosis or clubbing, extremities motor strength 5/5 Neurologic: DTRs brisk but symmetric 2+ b/l legs no foot drop on exam b/l strength all muscles groups of b/l legs 5/5 Psychiatric: A+Ox3, euthymic affect Results & Data Laboratory Results Laboratory Results - last 24 hr 06/05/18 06/05/18 06/05/18 02:20 02:20 04:44 WBC 8.10 RBC 4.34 L Hgb 14.0 Hct 40.1 L MCV 92.4 MCH 32.3 MCHC 34.9 RDW Std Deviation 44.9 RDW Coeff of Surinder 13.3 Plt Count 237 MPV 10.5 H Immature Gran % (Auto) 0.6 Neut % (Auto) 61.8 Lymph % (Auto) 24.3 [place] % (Auto) 8.5 Eos % (Auto) 4.1 Baso % (Auto) 0.7 Immature Gran # (Auto) 0.05 H Neut # (Auto) 5.00 Lymph # (Auto) 1.97 [place] # (Auto) 0.69 H Eos # (Auto) 0.33 Baso # (Auto) 0.06 Sodium 140 140 Potassium 3.9 3.8 Chloride 108 H 106 Carbon Dioxide 27 27 Anion Gap 5.0 7.0 BUN 20 H 18 Creatinine 1.19 1.13 Est Cr Clr Drug Dosing 58.3 67.2 Est GFR ( Amer) 72.8 77.5 Est GFR (Non-Af Amer) 62.8 66.9 BUN/Creatinine Ratio 16.7 16.2 Glucose 111 H 101 H Calcium 9.1 9.3 Phosphorus 3.7 Magnesium 2.1 _ (1) Sciatica Laterality: left Qualified Code(s): M54.32 - Sciatica, left side (2) Hypertension Hypertension type: essential hypertension Qualified Code(s): I10 - Essential (primary) hypertension (3) Hyperlipidemia Hyperlipidemia type: unspecified Qualified Code(s): E78.5 - Hyperlipidemia, unspecified (4) Depression Depression Type: major depressive disorder Major depression recurrence: recurrent Active/Remission status: in remission of unspecified degree Major depression episode severity: Psychotic features: Trimester: Qualified Code (s): F33.40 - Major depressive disorder, recurrent, in remission, unspecified (5) Hypothyroidism Hypothyroidism type: unspecified Qualified Code(s): E03.9 - Hypothyroidism, unspecified (6) GERD (gastroesophageal reflux disease) Esophagitis presence: esophagitis presence not specified Qualified Code(s): K21.9 - Gastro-esophageal reflux disease without esophagitis
[2018-06-06] MEDS: DEXAMETHASONE SOD PHOSPHATE 4 MG in SYRINGE 0 ML IV SCH ×2 (03:41→09:08)
[2018-06-06] MEDS: LEVOTHYROXINE SODIUM 88 MCG TABLET PO SCH (05:48)
[2018-06-06] MEDS: ACETAMINOPHEN 500 MG TAB PO SCH (05:48)
[2018-06-06 06:30] LABS: Basophils # (auto) 0.01 K/uL (0-0.2); Basophils % (auto) 0.1 %; Hematocrit (blood only) 40.5 % (42-52); Hemoglobin 14.1 g/dL (14.0-18.0); Immature Granulocytes # (auto) 0.04 K/uL (0.00-0.02); Immature Granulocytes % (auto) 0.3 %; Lymphocytes # (auto) 1.29 K/uL (1.2-3.4); Lymphocytes % (auto) 8.6 %; Mean Corpuscular Hgb Conc 34.8 g/dL (32-36); Mean Corpuscular Volume 91.6 fL (80-100); Mean Platelet Volume 10.9 fL (7.4-10.4); Monocytes # (auto) 0.34 K/uL (0.11-0.59); Monocytes % (auto) 2.3 %; Neutrophils # (auto) 13.28 K/uL (1.4-6.5); Neutrophils % (auto) 88.7 %; Platelet Count 259 K/uL (130-400); RDW Coefficient of Variation 13.2 % (11.5-14.5); RDW Standard Deviation 44.1 fL (36.4-46.3); Red Blood Count 4.42 M/uL (4.7-6.1); White Blood Count 14.96 K/uL (4.8-10.8)
[2018-06-06] MEDS: CYCLOBENZAPRINE HCL 10 MG TAB PO SCH (09:07)
[2018-06-06] MEDS: POTASSIUM CHLORIDE 10 MEQ TABCR PO SCH (09:07)
[2018-06-06] MEDS: CHLORTHALIDONE 25 MG TAB PO SCH (09:08)
[2018-06-06] MEDS: PANTOprazole 40 MG TAB PO SCH (09:09)
[2018-06-06] MEDS: ESCITALOPRAM OXALATE 20 MG TAB PO SCH (09:09)
[2018-06-06] MEDS: LIDOCAINE 5% 1 PATCH TD SCH (09:29)
[2018-06-06] MEDS: DRONABINOL 2.5 MG CAP PO SCH (09:37)
--- NOTE | 2018-06-06 11:11 | Discharge Summary ---
Date of Service June 06, 2018 Admission HPI Per Admitting Provider Mr. Campos is a pleasant 67-year-old male with history of hypertension , hyperlipidemia, hypothyroidism, restless leg syndrome. Also with lumbar radiculopathy and DJD. Patient began experiencing left-sided sciatic pain approximately 3 months ago. He is controlling his pain at home with Tylenol and Aleve as needed. He was seen by neurology on 18 May 2018 with complaints of worsening sciatic pain. A lumbar MRI was ordered at that time which revealed small disc herniation with 8 mm fragment causing S1 nerve impingement. Degenerative edema at L5-S1. No significant compromise of the central canal. Patient has an appointment with pain management this Wednesday. Yesterday patient did yard work, pulling leaves from under his boat. He feels that this may have exacerbated his back pain. This morning he had a difficult time getting out of bed secondary to back pain. Also complaining of numbness and tingling down the posterior thigh into the foot. He denies weakness, saddle anesthesia or bowel/bladder incontinence. No fever or trauma. No additional complaints at this time. ER course: Dilaudid 0.5 mg IV, 1mg IV, Solumedrol 125 mg IV Principal Diagnosis Back pain Discharge Exam Constitutional WD/WN, vitals as above Respiratory normal respiratory effort, lungs clear to auscultation Cardiovascular RRR, no murmur, no edema Gastrointestinal (Abdomen) normal bowel sounds, soft, nontender, no hepatosplenomegaly Musculoskeletal no cyanosis or clubbing, extremities motor strength 5/5 Spine: lumbar spine normal to inspection; no thoracic spinal tenderness and no lumbar spinal tenderness Extremities: strength 5/5 throughout Gait: normal gait (a little stiff in his right knee where he had knee replacement) Neurologic patellar DTR's 2+ bilat, sensation intact Gait: no ataxic gait Discharge Data Allergies Allergy/AdvReac Type Severity Reaction Status Date / Time No Known Allergies Allergy Verified 06/05/18 01:01 Consultations 06/05/18 02:22 ED Decision to Admit Stat Hospital Course (1) Sciatica: Disc bulge with S1 impingement on left. Symptoms and signs c/w the s1 nerve root compression. Neuro exam intact. Discharge with Decadron 4 mg po bid for four more days for five days total - will see pain management on Wednesday Patient declined to take nortryptiline at home given its possible interactions with medical marijuana Has not required oxycodone or toradol for almost 24 hours. Feels ready to go home with just the dexamethasone as a new HOLD aspirin moving forward since he potentially may need outpatient epidural steroid injection for the s1 radiculopathy in the future No saddle anesthesia or loss of bowel or bladder to indicate concern for cauda equina. Patient reports numbness/ pain in foot and lateral leg is intermittent (2) Hypertension: cont outpatient meds acceptable control (3) Hyperlipidemia: statin (4) Depression: cont celexa (5) Hypothyroidism: synthroid (6) GERD (gastroesophageal reflux disease): PPI (7) Restless leg: Patient reports he has taken multiple different medications in an attempt to control his restless legs and even though the dronabinol doesn't help that much it's the best he's tried so far. I encouraged him to discuss this with pain management and see if they might be able to assist in finding a more effective solution. (8) DVT prophylaxis: Total Time Total Time Spent Total Time Spent (In Minutes): greater than 30 minutes Total Time Includes: Examination of the Patient, Discharge Planning and Medication Reconciliation Discharge Plan Discharge Items Patient Disposition: Home - Self-Care Reason For Visit: INTRACTABLE BACK PAIN Discharge Diagnosis: Back pain Discharge Goals: Decrease discomfort Activity: Resume your previous activity Activity Comment: gradually as tolerated Non-emergency contact: Primary Care Provider Call non-emergency contact if: you have any medication questions, your symptoms worsen, your pain is not controlled, your pain is worsening, your pain is unusual for you and your pain is concerning for you Follow-up/Referrals: Kavita Hager CRNP [Primary Care Provider] - 06/17/18 10:30 am (Please, follow up at [facility] with Kavita GARZA on WednesdayJune 17 at 10:30 am. *If you need to change this appointment, call the office at [phone].) Diet: Regular Addtl Provider Instructions: Please keep your pain management appointment for Wednesday. Please return to the emergency department if you experience numbness in your groin or perineal area or if you lose control of your bowels or bladder. You will return home with a prescription for dexamethasone which is a steroid meant to help reduce inflammation around your spine until your are seen by pain management. Please hold your aspirin until you are seen by pain management in case they would like to perform a steroid injection. Prescriptions: New dexamethasone 4 mg tablet 4 mg PO BID Qty: 8 RF: 0 Continue coenzyme Q10 [CoQ-10] 100 mg Capsule 100 mg PO QAM RF: 0 escitalopram oxalate 20 mg Tablet 20 mg PO DAILY RF: 0 levothyroxine 88 mcg Tablet 88 mcg PO DAILY RF: 0 omeprazole 20 mg Tablet,Delayed Release (Dr/Ec) 20 mg PO DAILY RF: 0 potassium chloride 10 mEq Tablet,Er Particles/Crystals 10 meq PO BID RF: 0 pravastatin 20 mg Tablet 20 mg PO QPM RF: 0 chlorthalidone 25 mg Tablet 25 mg PO QAM RF: 0 dronabinol 5 mg/mL Solution 10 mg PO TID RF: 0 Discontinued aspirin [Aspir-81] 81 mg Tablet,Delayed Release (Dr/Ec) 81 mg PO HS RF: 0 Stand-Alone Forms: [facility] Discharge Orders: Discharge Order (Routine); Ordered 06/06/18 Ordered By: Abbi Maldonado Admission Data Admit Date/Time: 06/05/18 03:02 Attending Provider: Regan Monique Admit Provider: Maite Stock Primary Care Provider: Kavita Hager Other Providers: Maite Stock ; Parish Jarvis Service: Medical Other Interventions: Discharge Summary Assessment (RN) Last Done: 06/06/18 11:07 DC Date/Time DO NOT enter until pt leaves facility: 06/06/18 12:09
== END 2018-06-06 12:09 | disposition home or self-care (01) ==
LOC: ED 23:26 → 3N 23:26 → SUATTDRO 06-05 03:02 → 3N 06-05 03:36